=== PATIENT | female | born 1960 | race Two or more races ===

== ENCOUNTER 2016-12-28 05:33 | Emergency (ER) | payer SELFPAY ==
[~2016-12-28] VITALS: Ht 167.6 cm; Wt 81.6 kg
[2016-12-28] MEDS ORDERED: SODIUM CHLORIDE 0.9% 1,000 ML IV ONE (06:56)
[2016-12-28] MEDS ORDERED: DIPHENOXYLATE W/ATROPINE 2.5 MG TAB PO ONE (07:00)
[2016-12-28 09:38] LABS: Basophils # (auto) 0.1 uL; Basophils % (auto) 0.8 % (0.0-2.0); Eosinophils # (auto) 0.1 uL; Eosinophils % (auto) 0.7 % (0.0-7.0); Hematocrit 40.5 % (36.0-46.0); Hemoglobin 13.7 g/dL (12.2-16.2); Lymphocytes # (auto) 2.4 uL; Mean Corpuscular Hemoglobin 28.5 pg (28.0-32.0); Mean Corpuscular Hgb Conc. 33.9 g/dL (32.0-36.0); Mean Corpuscular Volume 84.2 fL (80.0-100.0); Mean Platelet Volume 8.3 fL (6.9-10.8); Monocytes # (auto) 0.4 uL; Neutrophils # (auto) 10.3 uL; Neutrophils % (auto) 77.5 % (37.0-80.0); Nucleated Red Blood Cells % 0.1 %; Platelet Count (auto) 260 10^3/uL (140-450); Red Cell Distribution Width 12.9 % (11.8-14.3); White Blood Cell 13.3 10^3/uL (4.4-10.8)
[2016-12-28] MEDS ORDERED: HYDROcodone-ACET 10/325MG TAB PO ONE (10:00)
[2016-12-28 10:02] LABS: Albumin 3.7 g/dL (3.4-5.0); Alkaline Phosphatase 177 U/L (45-117); Anion Gap 8 (5-15); Aspartate Aminotransferase 31 U/L (15-37); BUN/Creatinine Ratio 23.9; Bilirubin, Total 0.3 mg/dL (0.2-1.0); Blood Urea Nitrogen 11 mg/dL (7-18); Carbon Dioxide 22 mmol/L (21-32); Chloride 109 mmol/L (98-107); GFR African American 181 mL/min; GFR Non-African American 150 mL/min; Glucose 138 mg/dL (74-106); Potassium 4.2 mmol/L (3.5-5.1); Sodium 139 mmol/L (136-145); Total Protein 7.8 g/dL (6.4-8.2)
[2016-12-28 10:07] VITALS: BP 125/85
== END 2016-12-28 11:22 | disposition home or self-care (01) ==
LOC: EDBD 05:33 → ER 05:42
DX: N39.0 Urinary tract infection, site not specified (principal); R19.7 Diarrhea, unspecified; I10 Essential (primary) hypertension; L93.0 Discoid lupus erythematosus
CPT/HCPCS: 36415; 74176; 80053; 81002; 84484; 85025; 96360; 99285; J7030

== ENCOUNTER 2017-01-26 14:07 | Emergency (ER) | payer SELFPAY ==
[~2017-01-26] VITALS: Ht 157.5 cm; Wt 74.8 kg
[2017-01-26 16:26] LABS: Hemoglobin 14.8 g/dL (12.2-16.2)
[2017-01-26 16:37] LABS: Hematocrit 44.1 % (36.0-46.0); Mean Corpuscular Hemoglobin 28.7 pg (28.0-32.0); Mean Corpuscular Hgb Conc. 33.5 g/dL (32.0-36.0); Mean Corpuscular Volume 85.7 fL (80.0-100.0); Mean Platelet Volume 8.7 fL (6.9-10.8); Platelet Count (auto) 249 10^3/uL (140-450); Red Cell Distribution Width 13.5 % (11.8-14.3); White Blood Cell 10.6 10^3/uL (4.4-10.8)
[2017-01-26 16:44] LABS: Metamyelocytes % 0; Myelocytes % 0; Promyelocytes % 0; Reactive Lymphocytes 0
[2017-01-26 17:04] LABS: Albumin 4.1 g/dL (3.4-5.0); Alkaline Phosphatase 137 U/L (45-117); Anion Gap 12 (5-15); Aspartate Aminotransferase 34 U/L (15-37); Bilirubin, Total 0.5 mg/dL (0.2-1.0); Blood Urea Nitrogen 12 mg/dL (7-18); Calcium 9.2 mg/dL (8.5-10.1); Carbon Dioxide 24 mmol/L (21-32); Chloride 102 mmol/L (98-107); GFR African American 133 mL/min; GFR Non-African American 110 mL/min; Glucose 182 mg/dL (74-106); Magnesium 2.2 mg/dL (1.6-2.6); Sodium 138 mmol/L (136-145); Total Protein 8.2 g/dL (6.4-8.2)
[2017-01-26 17:34] VITALS: BP 128/71
[2017-01-26 20:18] LABS: Anisocytosis Moderate; Platelet Estimate Adequate
== END 2017-01-27 00:09 | disposition left against medical advice (07) ==
LOC: ER 14:17
DX: R79.9 Abnormal finding of blood chemistry, unspecified (principal); Z53.21 Procedure and treatment not carried out due to patient leaving prior to being seen by health care provider
CPT/HCPCS: 36415; 80053; 83735; 84484; 85007; 85027; 93005

== ENCOUNTER 2024-04-18 10:01 | Emergency (ER) | payer OTHER ==
[~2024-04-18] VITALS: Ht 157.5 cm; Wt 75.0 kg
[2024-04-18 10:30] VITALS: PULSE 77; RESP 16; O2SAT 96
[2024-04-18] MEDS: HYDROcodone-ACET 5/325MG TAB PO ONE (10:51)
--- NOTE | 2024-04-18 11:31 | ED.PDOC ---
Musculoskeletal HPI Comments 63y F who presents to the ED for chief complaint of fall injury. Per daughter, pt had mechanical fall and injury last night. Pt states she tripped and fell and hit the R side of her chest on her desk drawer. Pt states after fall, she started to have chest pain on the R side of her chest but denies any associated loss of consciousness or head injury. Pt states the pain went away but states the chest pain came back today AM and came to the ED for further evaluation. Pt int the ED, states she is having R sided chest pain and states the pain is worse when taking a deep breath. Pt otherwise denies any associated shortness of breath, diaphoresis, or any associated symptoms. Pt in the ED, has no noted lacerations or abrasions noted. Pt daughter states pt is prone to falls and had fall few months prior and came to the hospital and was dx with hip fracture. 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 Pt has noted stable vitals with noted exception of BP 148/69. Pt otherwise denies any other symptoms at this time. Chief Complaint: Fall Injury Time Seen by MD: 11:28 Reviewed Notes: Medications, Allergies Allergies: Coded Allergies: Codeine (Verified Allergy, Mild, bp drops, 04/18/24) Per patient Information Source: Patient, Relative Mode of Arrival: Wheelchair Brought in by: daughter Past Medical History PAST MEDICAL HISTORY: CVA, HTN Surgical History: Denies all surgeries COMMUNITY CENTER DIRECTOR History: Denies all COMMUNITY CENTER DIRECTOR Hx Family History Family History: Unknown Social History Smoker: Non-Smoker Alcohol: Denies ETOH Use Drugs: Denies Drug Use Lives In: Home Constitutional: denies: chills, diaphoresis, fatigue, fever, malaise, sweats, weakness, others EENTM: denies: blurred vision, double vision, ear bleeding, ear discharge, ear drainage, ear pain, ear ringing, eye pain, eye redness, hearing loss, mouth pain, mouth swelling, nasal discharge, nose bleeding, nose congestion, nose pain, photophobia, tearing, throat pain, throat swelling, voice changes, others Respiratory: denies: cough, hemoptysis, orthopnea, SOB at rest, shortness of breath, SOB with excertion, stridor, wheezing, others Cardiovascular: reports: chest pain; denies: dizzy spells, diaphoresis, Dyspnea on exertion, edema, irregular heart beat, left arm pain, lightheadedness, palpitations, PND, syncope, others Gastrointestinal: denies: abdomen distended, abdominal pain, blood streaked bowels, constipated, diarrhea, dysphagia, difficulty swallowing, hematemesis, melena, nausea, poor appetite, poor fluid intake, rectal bleeding, rectal pain, vomiting, others Genitourinary: denies: abnormal vagina bleeding, burning, dyspareunia, dysuria, flank pain, frequency, hematuria, incontinence, pain, , vagina discharge, urgency, others Neurological: denies: dizziness, fainting, headache, left sided numbness, left sided weakness, numbness, paresthesia, pre-existing deficit, right sided numbness, right sided weakness, seizure, speech problems, tingling, tremors, weakness, others Musculoskeletal: denies: back pain, gout, joint pain, joint swelling, muscle pain, muscle stiffness, neck pain, others Integumetry: denies: bruises, change in color, change in hair/nails, dryness, laceration, lesions, lumps, rash, wounds, others Allergic/Immunocompromised: denies: Difficulty Healing, Frequent Infections, Hives, Itching, others Hematologic/Lymphatic: denies: anemia, blood clots, easy bleeding, easy bruising, swollen glands, others Endocrine: denies: excessive hunger, excessive sweating, excessive thirst, excessive urination, flushing, intolerance to cold, intolerance to heat, unexplained weight gain, unexplained weight loss, others Psychiatric: denies: anxiety, bipolar disorder, depression, hopeless, panic disorder, schizophrenia, sleepless, suicidal, others All Other Systems: Reviewed and Negative Physical Exam General Appearance: No Apparent Distress HEENT: PERRL/EOMI Neck: Full Range of Motion, Normal Inspection Respiratory: Lungs Clear, No Accessory Muscle Use, No Respiratory Distress, Normal Breath Sounds, Other (Right mid anterior, lateral and posterior chest wall tenderness to palpation. No bruising or crepitus.) Cardiovascular: No Edema, No JVD, Regular Rate/Rhythm Breast Exam: Deferred Gastrointestinal: Non Tender, Soft Genitalia: Deferred Pelvic: Deferred Rectal: Deferred Extremities: Normal inspection, Normal range of motion, Non-tender, No pedal edema Neurologic: Alert (Oriented x4), Normal Affect, Normal Mood, Other (Chronic right upper and lower extremity weakness. No change per patient.) Cerebellar Function: NOT DONE Reflexes: NOT DONE Skin: Dry, Normal Color, Warm Lymphatic: NOT DONE Was a procedure done? Was a procedure done?: No Differential Diagnosis EXT Differential Diagnosis: Fracture, Contusion Other Differential Diagnosis rib fracture, hemothorax, pulmonary contusion, chest wall contusion, among others X-Ray, Labs, Meds, VS Vital Signs Date Time Temp Pulse Resp B/P (MAP) Pulse Ox O2 Delivery O2 Flow Rate FiO2 04/18/24 10:30 77 16 96 Room Air* 0 21 04/18/24 10:29 97.4 77 16 137/65 (89) 96 97.4 04/18/24 10:11 97.3 79 18 148/69 (95) 96 Lab Test 04/18/24 12:36 04/18/24 11:14 04/18/24 10:27 Range/Units Urine Color Pending Urine Clarity Pending Urine pH Pending Urine Specific [place] Pending Urine Protein Pending Urine Ketones Pending Urine Blood Pending Urine Nitrite Pending Urine Bilirubin Pending Urine Urobilinogen Pending Urine Leukocyte Esterase Pending Urine RBC Pending Urine Microscopic WBC Pending Urine Squamous Epithelial Cells Pending Urine Bacteria Pending Urine Glucose Pending White Blood Count 10.5 4.4-10.8 10^3/uL Red Blood Count 5.82 H 4.0-5.20 10^6/uL Hemoglobin 15.9 12.2-16.2 g/dL Hematocrit 46.6 H 36.0-46.0 % Mean Corpuscular Volume 80.1 80.0-100.0 fL Mean Corpuscular Hemoglobin 27.3 L 28.0-32.0 pg Mean Corpuscular Hemoglobin Concent 34.1 32.0-36.0 g/dL Red Cell Distribution Width 15.8 H 11.8-14.3 % Platelet Count 310 140-450 10^3/uL Mean Platelet Volume 8.5 6.9-10.8 fL Neutrophils (%) (Auto) 65.2 37.0-80.0 % Lymphocytes (%) (Auto) 26.6 10.0-50.0 % Monocytes (%) (Auto) 4.6 0.0-12.0 % Eosinophils (%) (Auto) 2.4 0.0-7.0 % Basophils (%) (Auto) 1.2 0.0-2.0 % Neutrophils # (Auto) 6.8 1.6-8.6 10 ^3/uL Lymphocytes # (Auto) 2.8 0.4-5.4 10 ^3/uL Monocytes # (Auto) 0.5 0-1.3 10 ^3/uL Eosinophils # (Auto) 0.2 0-0.8 10 ^3/uL Basophils # (Auto) 0.1 0-0.2 10 ^3/uL Nucleated Red Blood Cells 0.0 % Sodium Level 143 136-145 mmol/L Potassium Level 3.7 3.5-5.1 mmol/L Chloride Level 108 H 98-107 mmol/L Carbon Dioxide Level 25 20-31 mmol/L Anion Gap 10 5-15 Blood Urea Nitrogen 12 9-23 mg/dL Creatinine 0.65 0.550-1.02 mg/dL Glomerular Filtration Rate Calc 99 >90 mL/min BUN/Creatinine Ratio 18.5 10.0-20.0 Serum Glucose 134 H 74-106 mg/dL Calcium Level 10.2 8.7-10.4 mg/dL Troponin I High Sensitivity 3 L </=34 ng/L B-Type Natriuretic Peptide 67.73 0-100 pg/mL POC Glucose 116 H 70-106 mg/dl [place] [id number] Ph: [phone] DIAGNOSTIC IMAGING Diagnostic Imaging Report : [id number] Signed PATIENT: ELLEN DIAZACCT: [id number] UNIT: [id number] : 1960 LOC: ER ROOM / BED: / AGE / SEX: 63 / F ADM STATUS: REG ER SERVICE [id number] ORDERING PHYSICIAN: DENISE HANNA MD PROCEDURE(s): RRIBS - R RIB XRAY REASON: R chest wall pain sp fall ORDER NUMBER(s): [id number], ACCESSION NUMBER(s): [id number] EXAM: XR Right Ribs and AP Chest, 3 or More Views CLINICAL INDICATION: R chest wall pain sp fall TECHNIQUE: Frontal and oblique views of the right ribs and frontal view of the chest. COMPARISON: None FINDINGS: LUNGS AND PLEURAL SPACES: Unremarkable. No consolidation. No pneumothorax. HEART: Unremarkable. No cardiomegaly. MEDIASTINUM: Unremarkable. Normal mediastinal contour. BONES/JOINTS: Unremarkable. No displaced rib fractures. OTHER FINDINGS: . IMPRESSION: No displaced rib fractures. ATED BY: JAMES LORA MD DICTATED DATE/TIME: 04/18/24 113 SIGNED BY: JAMES LORA MD SIGNED DATE/TIME: 04/18/24 113 CC: X-Ray, Labs, Meds, VS Comment 63-year-old female with a history of CVA and hypertension brought in by daughter for evaluation of right-sided chest wall pain status post fall. Vitals remarkable for BP 148/69 Exam remarkable for right-sided chest wall tenderness to palpation. No bruising or crepitus Rhythm strip independently interpreted by me: Sinus rhythm, rate 79, no ectopy. Right rib series no displaced rib fracture CBC, metabolic panel, BNP, troponin and UA unremarkable for any abnormality of acute significance Patient treated with the following in the ED: Time of 1ST Reevaluation: 12:00 Reevaluation 1ST: Unchanged Time of 2ND Reevaluation: 13:14 Patient Education/Counseling: Diagnosis, Treatment Family Education/Counseling: Diagnosis, Treatment Additional Information -Reviewed patient's previous visit(s): - The following tests were ordered, and results were reviewed by me: trop x 2, cbc, bnp, ua, bmp, ekg x1, r rib x-ray, - Additional information was gathered from interviewing the following independent Historian:pt and pt daugther - I reviewed and agreed with the following test results read by other provider: radiologist - I discussed treatments and results with medical personnel and: patient and pt daughter Comprehensive systems review obtained and negative except for what is stated in the HPI. Departure 1 Departure Time of Disposition: 13:14 Impression: Primary Impression: Chest wall contusion Qualified Codes: S20.211A - Contusion of right front wall of thorax, initial encounter Disposition: HOME / SELF CARE / HOMELESS Condition: Stable Additional Instructions: Blood tests were unremarkable. Your x-rays did not show any broken bones. Your chest pain is likely due to a bruise on your chest wall. This is treated with pain medications. I have prescribed pain medications for you to take at home. Follow-up with your primary doctor in 1-2 days. e-Prescriptions Tramadol Hcl (Tramadol Hcl) 50 Mg Tab 50 MG PO Q6HP PRN, #20 TAB prn breakthrough pain Prov: DENISE HANNA MD 04/18/24 Ibuprofen Micronized (Ibuprofen) 800 Mg Tab 800 MG PO Q8HP PRN, #30 TAB prn pain, take with food Prov: DENISE HANNA MD 04/18/24 Discharged With: Relative Critical Care Note Critical Care Time?: No Stability Stability form required: No Heart Score Heart Score: Heart Score Response (Comments) Value History N/A 0 EKG N/A 0 Age N/A 0 Risk Factors N/A 0 Troponin N/A 0 Total 0 I personally scribed for DENISE HANNA MD ([email or web address]) on 04/18/24 at 1 1:31. Electronically submitted by Humberto Amaya ([email or web address]). I personally scribed for DENISE HANNA MD ([email or web address]) on 04/18/24 at 11:50. Electronically submitted by Humberto Amaya ([email or web address]). DENISE HANNA MD Apr 18, 2024 11:31
--- NOTE | 2024-04-18 11:34 | DVH ---
EXAM: XR Right Ribs and AP Chest, 3 or More Views CLINICAL INDICATION: R chest wall pain sp fall TECHNIQUE: Frontal and oblique views of the right ribs and frontal view of the chest. COMPARISON: None FINDINGS: LUNGS AND PLEURAL SPACES: Unremarkable. No consolidation. No pneumothorax. HEART: Unremarkable. No cardiomegaly. MEDIASTINUM: Unremarkable. Normal mediastinal contour. BONES/JOINTS: Unremarkable. No displaced rib fractures. OTHER FINDINGS: . IMPRESSION: No displaced rib fractures.
[2024-04-18 11:35] LABS: Basophils # (auto) 0.1 10 ^3/uL (0-0.2); Basophils % (auto) 1.2 % (0.0-2.0); Eosinophils # (auto) 0.2 10 ^3/uL (0-0.8); Eosinophils % (auto) 2.4 % (0.0-7.0); Hematocrit 46.6 % (36.0-46.0); Hemoglobin 15.9 g/dL (12.2-16.2); Lymphocytes # (auto) 2.8 10 ^3/uL (0.4-5.4); Lymphocytes % (auto) 26.6 % (10.0-50.0); Mean Corpuscular Hemoglobin 27.3 pg (28.0-32.0); Mean Corpuscular Hgb Conc. 34.1 g/dL (32.0-36.0); Mean Corpuscular Volume 80.1 fL (80.0-100.0); Monocytes # (auto) 0.5 10 ^3/uL (0-1.3); Monocytes % (auto) 4.6 % (0.0-12.0); Neutrophils # (auto) 6.8 10 ^3/uL (1.6-8.6); Neutrophils % (auto) 65.2 % (37.0-80.0); Platelet Count (auto) 310 10^3/uL (140-450); Red Blood Cells 5.82 10^6/uL (4.0-5.20); Red Cell Distribution Width 15.8 % (11.8-14.3); White Blood Cell 10.5 10^3/uL (4.4-10.8)
[2024-04-18 11:38] LABS: Potassium 3.7 mmol/L (3.5-5.1); Sodium 143 mmol/L (136-145)
[2024-04-18 11:39] LABS: Anion Gap 10 (5-15); Calcium 10.2 mg/dL (8.7-10.4); Carbon Dioxide 25 mmol/L (20-31)
[2024-04-18 11:43] LABS: Chloride 108 mmol/L (98-107)
[2024-04-18 11:44] LABS: BUN/Creatinine Ratio 18.5 (10.0-20.0); Blood Urea Nitrogen 12 mg/dL (9-23)
[2024-04-18 11:46] LABS: Glucose 134 mg/dL (74-106)
[2024-04-18 12:56] LABS: Urine Bacteria FEW /hpf (None Seen); Urine Blood Negative /uL (Negative); Urine Clarity Clear (Clear); Urine Color Light-Yellow (Yellow); Urine Protein, UAD 1+ (Negative); Urine Specific Gravity 1.011 (1.001-1.035); Urine Squamous Epithelial Cell FEW /hpf (<5); Urine Urobilinogen Normal (Negative); Urine WBC 3 /HPF (0-5)
[2024-04-18] MEDS: ONDANSETRON ODT 4 MG TAB PO ONE (13:15)
[2024-04-18] MEDS ORDERED: IBUP-1455 PO (13:19)
[2024-04-18] MEDS ORDERED: TRAM50TA2 PO (13:19)
[2024-04-18] MEDS ORDERED: MORPHINE SULFATE 4 MG/ML SYR/VIAL IM ONE (13:50)
[2024-04-18 14:18] VITALS: BP 126/65; PULSE 80; RESP 17; TEMP 97.6; O2SAT 96
== END 2024-04-18 14:23 | disposition home or self-care (01) ==
LOC: ER 10:01
DX: S20.211A Contusion of right front wall of thorax, initial encounter (principal); I10 Essential (primary) hypertension; Z86.73 Personal history of transient ischemic attack (TIA), and cerebral infarction without residual deficits; Z88.5 Allergy status to narcotic agent; Z79.899 Other long term (current) drug therapy; W01.0XXA Fall on same level from slipping, tripping and stumbling without subsequent striking against object, initial encounter; Y93.89 Activity, other specified; Y92.89 Other specified places as the place of occurrence of the external cause; Y99.8 Other external cause status
CPT/HCPCS: 36415; 71101; 80048; 81001; 82947; 82962; 83880; 84484; 85025; Q0162

== ENCOUNTER 2024-07-22 18:38 | Inpatient (IN) | payer OTHER ==
[~2024-07-22] VITALS: Ht 160 cm; Wt 79.6 kg
[~2024-07-22 18:38] MED LIST: IBUP-1455 PO; TRAM50TA2 PO
[2024-07-22 19:37] LABS: Basophils # (auto) 0.1 10 ^3/uL (0-0.2); Basophils % (auto) 0.8 % (0.0-2.0); Eosinophils # (auto) 0.2 10 ^3/uL (0-0.8); Eosinophils % (auto) 1.8 % (0.0-7.0); Hematocrit 44.1 % (36.0-46.0); Hemoglobin 14.8 g/dL (12.2-16.2); Lymphocytes # (auto) 3.3 10 ^3/uL (0.4-5.4); Lymphocytes % (auto) 31.7 % (10.0-50.0); Mean Corpuscular Hemoglobin 27.6 pg (28.0-32.0); Mean Corpuscular Hgb Conc. 33.6 g/dL (32.0-36.0); Mean Corpuscular Volume 82.1 fL (80.0-100.0); Monocytes # (auto) 0.6 10 ^3/uL (0-1.3); Monocytes % (auto) 5.6 % (0.0-12.0); Neutrophils # (auto) 6.2 10 ^3/uL (1.6-8.6); Neutrophils % (auto) 60.1 % (37.0-80.0); Nucleated Red Blood Cells % 0.2 %; Platelet Count (auto) 297 10^3/uL (140-450); Red Blood Cells 5.37 10^6/uL (4.0-5.20); Red Cell Distribution Width 14.5 % (11.8-14.3); White Blood Cell 10.3 10^3/uL (4.4-10.8)
--- NOTE | 2024-07-22 19:39 | DVH ---
CHEST RADIOGRAPH Indication: gen weak Technique: Single frontal view of the chest was obtained Comparison: None FINDINGS: Lines and Tubes: None Lungs: Minimal right lower lung zone opacity. Elevated right hemidiaphragm. Pleura: No effusion. No pneumothorax. Cardiomediastinal contours: Unremarkable Bones: No acute osseous abnormality. IMPRESSION: Mild elevation of the right hemidiaphragm with right lower lung zone atelectasis/early pneumonia.
[2024-07-22 19:55] LABS: Alanine Aminotransferase 24 U/L (7-40); Anion Gap 11 (5-15); Aspartate Aminotransferase 24 U/L (13-40); BUN/Creatinine Ratio 13.8 (10.0-20.0); Carbon Dioxide 27 mmol/L (20-31); Chloride 103 mmol/L (98-107); Potassium 3.6 mmol/L (3.5-5.1); Sodium 141 mmol/L (136-145); Total Protein 7.8 g/dL (5.7-8.2)
[2024-07-22 19:56] LABS: Bilirubin, Total 0.4 mg/dL (0.2-1.0)
[2024-07-22 19:57] LABS: Albumin 4.9 g/dL (3.2-4.8); Alkaline Phosphatase 163 U/L (46-116); Blood Urea Nitrogen 9 mg/dL (9-23); Calcium 10.8 mg/dL (8.7-10.4); Glucose 248 mg/dL (74-106)
[2024-07-22] MEDS: hydrALAZINE HCL 20 MG/ML VL IV ONE (19:59)
--- NOTE | 2024-07-22 20:02 | DVH ---
CLINICAL HISTORY: gen weak TECHNIQUE: Helical imaging carried out from skull base to vertex without intravenous contrast. This e xam was performed according to our departmental dose optimization program. Up-to-date CT equipment an d radiation dose reduction techniques are utilized as appropriate. CTDIVol: 51.74 mGy DLP: 933.06 mGy-cm WID: COMPARISON: None FINDINGS: Mild generalized cerebral volume loss with concordant prominence of the subarachnoid spaces and ventr icles. Mild patchy low attenuation in the cerebral white matter consistent with nonspecific white mat ter disease. Small chronic infarct in the left gramajo radiata and left basal ganglia. There is a smal l chronic infarct in the left thalamus. There is no midline shift or mass effect. The stone white matter interfaces are maintained. The basal cisterns are patent. There is no evidence of acute intracranial hemorrhage or extra-axial fluid michelle ection. The mastoid air cells and visualized paranasal sinuses are well-aerated aside from aerated se cretions in the left sphenoid sinus. Partially imaged periapical lucencies in some of the visualized maxillary teeth. IMPRESSION: 1. No acute intracranial abnormality. 2. Mild cerebral volume loss and mild chronic microvascular ischemic change. 3. Small chronic infarct in the left gramajo radiata and left basal ganglia. 4. Small chronic infarct in the left thalamus. 5. Periapical lucencies in some of the visualized maxillary teeth.
--- NOTE | 2024-07-22 22:56 | ED.PDOC ---
History of Present Illness HPI Comments 63-year-old female brought in by daughter. Daughter states patient has been having generalized weakness for the last three days. Mild cough. Patient does have a history of prior stroke three years ago with right-sided deficits. Patient states she feels very tired very fatigued. Has a hard time walking due to her fatigue. No fever at home. Nothing makes it better, nothing makes it worse. Chief Complaint: General Weakness Time Seen by MD: 18:43 Reviewed Notes: Nurses Notes Allergies: Coded Allergies: Codeine (Verified Allergy, Mild, bp drops, 04/18/24) Per patient Home Meds Active Scripts Tramadol Hcl (Tramadol Hcl) 50 Mg Tab, 50 MG PO Q6HP PRN, #20 TAB prn breakthrough pain Prov:DENISE HANNA MD 04/18/24 Ibuprofen Micronized (Ibuprofen) 800 Mg Tab, 800 MG PO Q8HP PRN, #30 TAB prn pain, take with food Prov:DENISE HANNA MD 04/18/24 Information Source: Patient Mode of Arrival: Wheelchair Past Medical History PAST MEDICAL HISTORY: CVA, HTN Surgical History: Denies all surgeries REVENUE INSPECTOR History: Denies all REVENUE INSPECTOR Hx Family History Family History: Unknown Social History Smoker: Non-Smoker Alcohol: Denies ETOH Use Drugs: Denies Drug Use Lives In: Home Constitutional: reports: fatigue, weakness; denies: chills, diaphoresis, fever, malaise, sweats, others EENTM: denies: blurred vision, double vision, ear bleeding, ear discharge, ear drainage, ear pain, ear ringing, eye pain, eye redness, hearing loss, mouth pain, mouth swelling, nasal discharge, nose bleeding, nose congestion, nose pain, photophobia, tearing, throat pain, throat swelling, voice changes, others Respiratory: reports: cough; denies: hemoptysis, orthopnea, SOB at rest, shortness of breath, SOB with excertion, stridor, wheezing, others Cardiovascular: denies: chest pain, dizzy spells, diaphoresis, Dyspnea on exertion, edema, irregular heart beat, left arm pain, lightheadedness, palpitations, PND, syncope, others Gastrointestinal: denies: abdomen distended, abdominal pain, blood streaked bowels, constipated, diarrhea, dysphagia, difficulty swallowing, hematemesis, melena, nausea, poor appetite, poor fluid intake, rectal bleeding, rectal pain, vomiting, others Genitourinary: denies: abnormal vagina bleeding, burning, dyspareunia, dysuria, flank pain, frequency, hematuria, incontinence, pain, , vagina discharge, urgency, others Neurological: denies: dizziness, fainting, headache, left sided numbness, left sided weakness, numbness, paresthesia, pre-existing deficit, right sided numbness, right sided weakness, seizure, speech problems, tingling, tremors, weakness, others Musculoskeletal: denies: back pain, gout, joint pain, joint swelling, muscle pain, muscle stiffness, neck pain, others Integumetry: denies: bruises, change in color, change in hair/nails, dryness, laceration, lesions, lumps, rash, wounds, others Physical Exam General Appearance: Mild Distress, No Apparent Distress HEENT: Normal ENT Inspection, Pharynx Normal, TMs Normal Neck: Full Range of Motion, Non-Tender, Normal, Normal Inspection Respiratory: Chest Non-Tender, Lungs Clear, No Accessory Muscle Use, No Respiratory Distress, Normal Breath Sounds Cardiovascular: No Edema, No JVD, No Murmur, No Gallop, Normal Peripheral Pulses, Regular Rate/Rhythm Breast Exam: Deferred Gastrointestinal: No Organomegaly, Non Tender, No Pulsatile Mass, Normal Bowel Sounds, Soft Genitalia: Deferred Pelvic: Deferred Rectal: Deferred Extremities: No calf tenderness, Normal capillary refill, Non-tender, No pedal edema Musculoskeletal : Apperance: Normal Neurologic: Alert, No Motor Deficits, Normal Affect, Normal Mood Cerebellar Function: Normal Reflexes: Normal Skin: Dry, Normal Color, Warm Lymphatic: No Adenopathy Was a procedure done? Was a procedure done?: No Differential Dx Considerations may include: pneumonia, CVA, TIA, sepsis X-Ray, Labs, Meds, VS Vital Signs Date Time Temp Pulse Resp B/P (MAP) Pulse Ox O2 Delivery O2 Flow Rate FiO2 07/22/24 19:59 201/135 07/22/24 19:25 73 24 178/70 (106) 92 07/22/24 19:00 74 07/22/24 18:50 98.4 72 18 211/91 (131) 95 98.4 Lab Test 07/22/24 19:23 Range/Units White Blood Count 10.3 4.4-10.8 10^3/uL Red Blood Count 5.37 H 4.0-5.20 10^6/uL Hemoglobin 14.8 12.2-16.2 g/dL Hematocrit 44.1 36.0-46.0 % Mean Corpuscular Volume 82.1 80.0-100.0 fL Mean Corpuscular Hemoglobin 27.6 L 28.0-32.0 pg Mean Corpuscular Hemoglobin Concent 33.6 32.0-36.0 g/dL Red Cell Distribution Width 14.5 H 11.8-14.3 % Platelet Count 297 140-450 10^3/uL Mean Platelet Volume 8.4 6.9-10.8 fL Neutrophils (%) (Auto) 60.1 37.0-80.0 % Lymphocytes (%) (Auto) 31.7 10.0-50.0 % Monocytes (%) (Auto) 5.6 0.0-12.0 % Eosinophils (%) (Auto) 1.8 0.0-7.0 % Basophils (%) (Auto) 0.8 0.0-2.0 % Neutrophils # (Auto) 6.2 1.6-8.6 10 ^3/uL Lymphocytes # (Auto) 3.3 0.4-5.4 10 ^3/uL Monocytes # (Auto) 0.6 0-1.3 10 ^3/uL Eosinophils # (Auto) 0.2 0-0.8 10 ^3/uL Basophils # (Auto) 0.1 0-0.2 10 ^3/uL Nucleated Red Blood Cells 0.2 % Sodium Level 141 136-145 mmol/L Potassium Level 3.6 3.5-5.1 mmol/L Chloride Level 103 98-107 mmol/L Carbon Dioxide Level 27 20-31 mmol/L Anion Gap 11 5-15 Blood Urea Nitrogen 9 9-23 mg/dL Creatinine 0.65 0.550-1.02 mg/dL Glomerular Filtration Rate Calc 99 >90 mL/min BUN/Creatinine Ratio 13.8 10.0-20.0 Serum Glucose 248 H 74-106 mg/dL Calcium Level 10.8 H 8.7-10.4 mg/dL Total Bilirubin 0.4 0.2-1.0 mg/dL Aspartate Amino Transferase (AST) 24 13-40 U/L Alanine Aminotransferase (ALT) 24 7-40 U/L Alkaline Phosphatase 163 H 46-116 U/L Total Protein 7.8 5.7-8.2 g/dL Albumin 4.9 H 3.2-4.8 g/dL Current Medications Medications (Trade) Dose Ordered Sig/Sadia Route Start Time Stop Time Status Last Admin Hydralazine HCl (Apresoline Injection) 10 mg ONCE ONCE IV 07/22/24 19:15 07/22/24 19:16 DC 07/22/24 19:59 X-Ray, Labs, Meds, VS Comment He will be admitted for hypertensive urgency controlled with hydralazine Patient also has possible pneumonia Patient be started on Rocephin 1 g Patient is hemodynamically stable CT scan was negative for any acute cranial abnormalities Time of 1ST Reevaluation: 22:56 Reevaluation 1ST: Unchanged Patient Education/Counseling: Diagnosis, Treatment Family Education/Counseling: Diagnosis, Treatment Departure 1 Departure Time of Disposition: 22:51 Impression: Primary Impression: Pneumonia Qualified Codes: J18.9 - Pneumonia, unspecified organism Additional Impression: Hypertensive urgency Disposition: 09 ADMITTED INPATIENT Condition: Stable Critical Care Note Critical Care Time?: No Stability Stability form required: No Heart Score Heart Score: Heart Score Response (Comments) Value History N/A 0 EKG N/A 0 Age N/A 0 Risk Factors N/A 0 Troponin N/A 0 Total 0 VASILIY MERRITT Jul 22, 2024 22:56
[2024-07-22] MEDS: cefTRIAXone 1GM/50ML D5W 50 ML IV ONE (23:17)
[2024-07-22 23:22] VITALS: RESP 20; O2SAT 96
[2024-07-22] MEDS ORDERED: hydrALAZINE HCL 20 MG/ML VL IV PRN (23:30)
[2024-07-22] MEDS ORDERED: DEXTROSE (50%) 50ML SYRG IV PRN (23:30)
[2024-07-22] MEDS ORDERED: ALBUTEROL SULF 2.5 MG/0.5ML(0.5%) NEB SOLN NEB PRN (23:30)
[2024-07-23] VITALS (13 sets, daily range): BP systolic 114–152; BP diastolic 51–79; PULSE 63–75; RESP 12–18; TEMP 97.7–98.5; O2SAT 91–100
--- NOTE | 2024-07-23 00:03 | DVHHP2 ---
History of Present Illness Reason for Visit: Headache History of Present Illness 63-year-old female presents for evaluation of generalized weakness in the headache. She states developing these symptoms three days ago. She does have a history of CVA with right-sided deficits. She reports having a mild productive cough with white phlegm and intermittent chills. On arrival to the emergency department patient's blood pressure was noted to be greater than 200. Denies blurred vision. No chest pain. No other acute complaints reported. Past Medical History Diabetes mellitus, hypertension, CVA Past Surgical History Denies Family History Noncontributory Smoke: No ALCOHOL: none Drugs: None Lives: with Family Review of Systems Review of Systems Review of systems are currently negative otherwise addressed in HPI. Allergies: Coded Allergies: Codeine (Verified Allergy, Mild, bp drops, 04/18/24) Per patient Medications Current Medications Medications Dose Ordered Sig/Sadia Route Start Time Stop Time Status Last Admin Dose Admin Atenolol 25 mg DAILY PO 07/23/24 10:00 Aspirin 81 mg DAILY PO 07/23/24 10:00 Hydrochlorothiazide 25 mg DAILY PO 07/23/24 10:00 Atorvastatin Calcium 80 mg HS PO 07/23/24 22:00 Gabapentin 800 mg BID PO 07/23/24 10:00 Duloxetine HCl 60 mg DAILY PO 07/23/24 10:00 Hydralazine HCl 10 mg Q6HP PRN IV 07/22/24 23:30 UNV Albuterol 2.5 mg Q6HPRN PRN NEB 07/22/24 23:30 UNV Azithromycin 250 ml @ 125 mls/hr DAILY@2100 IV 07/23/24 21:00 UNV Diagnostic Test (Pha) 1 strip ACHS 07/23/24 07:00 UNV Insulin Human Regular ACHS SC 07/23/24 07:00 UNV Dextrose 50 ml UD PRN IV 07/22/24 23:30 UNV Ondansetron HCl 4 mg Q4HP PRN IV 07/22/24 23:30 UNV Enoxaparin Sodium 40 mg DAILY SC 07/23/24 10:00 UNV Acetaminophen 650 mg Q6HP PRN PO 07/22/24 23:30 UNV Exam Vital Signs Vital Signs Date Time Temp Pulse Resp B/P (MAP) Pulse Ox O2 Delivery O2 Flow Rate FiO2 07/22/24 23:37 79 15 120/61 (80) 95 07/22/24 23:22 Room Air* 0 21 21 07/22/24 21:30 98.1 98.1 Exam Gen: 63-year-old female in mild distress. Skin: Warm, dry, normal color and texture, no rash. HEENT: Normocephalic atraumatic, mucous membranes moist and pink. Neck: Cervical and supraclavicular nodes normal without enlargement, trachea is midline, thyroid gland is normal without masses. Pulmonary: Clear to auscultation and percussion bilaterally. Cardiac: Regular rate and rhythm. No murmur Abdomen: Soft, nontender, nondistended, bowel sounds present all 4 quadrants, no guarding, no rigidity, no organomegaly. Extremities: No cyanosis, clubbing, no edema Neuro: Right-sided deficits from previous CVA Labs/Xrays ORDERING PHYSICIAN: VASILIY MERRITTP PROCEDURE(s): CXRP - CHEST PORTABLE REASON: Futurederm ORDER NUMBER(s): [id number], ACCESSION NUMBER(s): [id number] CHEST RADIOGRAPH Indication: gen weak Technique: Single frontal view of the chest was obtained Comparison: None FINDINGS: Lines and Tubes: None Lungs: Minimal right lower lung zone opacity. Elevated right hemidiaphragm. Pleura: No effusion. No pneumothorax. Cardiomediastinal contours: Unremarkable Bones: No acute osseous abnormality. IMPRESSION: Mild elevation of the right hemidiaphragm with right lower lung zone atelectasis/early pneumonia. RING PHYSICIAN: VASILIY MERRITT WASTEWATER SUPERVISOR PROCEDURE(s): HWOCT - HEAD WITHOUT CONTRAST REASON: Futurederm ORDER NUMBER(s): [id number], ACCESSION NUMBER(s): [id number] CLINICAL HISTORY: weak TECHNIQUE: Helical imaging carried out from skull base to vertex without intravenous contrast. This exam was performed according to our departmental dose optimization program. Up-to-date CT equipment and radiation dose reduction patricio hniques are utilized as appropriate. CTDIVol: 51.74 mGy DLP: 933.06 mGy-cm WID: COMPARISON: None FINDINGS: Mild generalized cerebral volume loss with concordant prominence of the subarachnoid spaces and ventricles. Mild patchy low attenuation in the cerebral white matter consistent with nonspecific white matter disease. Small chronic infarct in the left gramajo radiata and left basal ganglia. There is a small chronic infarct in the left thalamus. There is no midline shift or mass effect. The stone white matter interfaces are maintained. The basal cisterns are patent. There is no evidence of acute intracranial hemorrhage or extra-axial fluid collection. The mastoid air cells and visualized paranasal sinuses are well-aerated aside from aerated secretions in the left sphenoid sinus. Partially imaged periapical lucencies in some of the visualized maxillary teeth. IMPRESSION: 1. No acute intracranial abnormality. 2. Mild cerebral volume loss and mild chronic microvascular ischemic change. 3. Small chronic infarct in the left gramajo radiata and left basal ganglia. 4. Small chronic infarct in the left thalamus. 5. Periapical lucencies in some of the visualized maxillary teeth. Labs Test 07/22/24 19:23 Range/Units White Blood Count 10.3 4.4-10.8 10^3/uL Red Blood Count 5.37 H 4.0-5.20 10^6/uL Hemoglobin 14.8 12.2-16.2 g/dL Hematocrit 44.1 36.0-46.0 % Mean Corpuscular Volume 82.1 80.0-100.0 fL Mean Corpuscular Hemoglobin 27.6 L 28.0-32.0 pg Mean Corpuscular Hemoglobin Concent 33.6 32.0-36.0 g/dL Red Cell Distribution Width 14.5 H 11.8-14.3 % Platelet Count 297 140-450 10^3/uL Mean Platelet Volume 8.4 6.9-10.8 fL Neutrophils (%) (Auto) 60.1 37.0-80.0 % Lymphocytes (%) (Auto) 31.7 10.0-50.0 % Monocytes (%) (Auto) 5.6 0.0-12.0 % Eosinophils (%) (Auto) 1.8 0.0-7.0 % Basophils (%) (Auto) 0.8 0.0-2.0 % Neutrophils # (Auto) 6.2 1.6-8.6 10 ^3/uL Lymphocytes # (Auto) 3.3 0.4-5.4 10 ^3/uL Monocytes # (Auto) 0.6 0-1.3 10 ^3/uL Eosinophils # (Auto) 0.2 0-0.8 10 ^3/uL Basophils # (Auto) 0.1 0-0.2 10 ^3/uL Nucleated Red Blood Cells 0.2 % Sodium Level 141 136-145 mmol/L Potassium Level 3.6 3.5-5.1 mmol/L Chloride Level 103 98-107 mmol/L Carbon Dioxide Level 27 20-31 mmol/L Anion Gap 11 5-15 Blood Urea Nitrogen 9 9-23 mg/dL Creatinine 0.65 0.550-1.02 mg/dL Glomerular Filtration Rate Calc 99 >90 mL/min BUN/Creatinine Ratio 13.8 10.0-20.0 Serum Glucose 248 H 74-106 mg/dL Calcium Level 10.8 H 8.7-10.4 mg/dL Total Bilirubin 0.4 0.2-1.0 mg/dL Aspartate Amino Transferase (AST) 24 13-40 U/L Alanine Aminotransferase (ALT) 24 7-40 U/L Alkaline Phosphatase 163 H 46-116 U/L Total Protein 7.8 5.7-8.2 g/dL Albumin 4.9 H 3.2-4.8 g/dL Assessment/Plan Assessment/Plan Assessment Hypertensive urgency Possible community-acquired pneumonia History of CVA with right-sided deficits Diabetes mellitus, uncontrolled Plan Admit the patient to [facility] to the hospitalist Echocardiogram pending Resume home medications As needed antihypertensives Resume home medications Continue treatment per orders Plan discussed with: Patient [facility] Procedure Category Date Status Time Atenolol Tablet PHA 07/23/24 In Process (Tenormin Tablet) 10:00 Aspirin Tablet PHA 07/23/24 In Process 10:00 Hydrochlorothiazide PHA 07/23/24 In Process Tablet (Hydrochlorot 10:00 Atorvastatin (Lipitor) PHA 07/23/24 In Process 22:00 Gabapentin Capsule PHA 07/23/24 In Process (Neurontin Capsule) 10:00 Duloxetine Hcl PHA 07/23/24 In Process Capsule (Cymbalta 10:00 Hydralazine Injection PHA 07/22/24 Logged (Apresoline Inject 23:30 Albuterol Medneb PHA 07/22/24 Logged (Ventolin Medneb) 23:30 * Edge Bander Operator CONS 07/22/24 Transmitted Consult Pt Request For Service PT 07/22/24 Logged 23:21 Azithromycin 500mg/ PHA 07/23/24 Logged 250ml (Zithromax 50 21:00 Azithromycin 500mg/ PHA 07/22/24 Logged 250ml (Zithromax 50 23:30 Glucose Blood PHA 07/23/24 Logged (Accu-Chek Comfort 07:00 Insulin R (Human) PHA 07/23/24 Logged (Insulin R) 07:00 Dextrose 50% Syringe PHA 07/22/24 Logged 23:30 Admit ADMIT 07/22/24 Transmitted 23:21 Ondansetron Hcl PHA 07/22/24 Logged (Zofran) 23:30 Enoxaparin Sodium PHA 07/23/24 Logged (Lovenox) 10:00 Cardiac DIET 07/23/24 Transmitted Diet-2gna,Lofat,Lochol Breakfast Echo 2d Mode Cardiac US 07/22/24 Logged DOP 23:21 Condition: Stable ANNA 07/22/24 In Process 23:21 Acetaminophen Tablet PHA 07/22/24 Logged (Tylenol Tablet) 23:30 Bedrest With Bathroom ANNA 07/22/24 In Process Privileg 23:21 Thyroid Stimulating LAB 07/22/24 In Process Hormone 23:48 Date of Service: Jul 22, 2024 Billing Provider: REDD RODAS Common Visit Codes: [id number] INP/OBS CARE (HIGH) REDD RODAS Jul 23, 2024 00:03
[2024-07-23] MEDS: AZITHROMYCIN 500MG/ 250ML 250 ML IV ONE (00:19)
[2024-07-23] MEDS: ONDANSETRON HCL 4 MG/2 ML VIAL IV PRN (00:35)
[2024-07-23] MEDS: ACETAMINOPHEN 325 MG TAB PO PRN (00:38)
[2024-07-23] MEDS: ACCU-CHEK COMFORT CURVE STRIP VI SCH (06:27)
[2024-07-23] MEDS: InsuLIN REG 1unit/0.01ml Soln (100units/ml) SC SCH (06:34)
[2024-07-23] MEDS: DULoxetine HCL 30 MG CAP PO SCH (10:01)
[2024-07-23] MEDS: ATENOLOL 25 MG TAB PO SCH (10:03)
[2024-07-23] MEDS: GABAPENTIN 400 MG CAP PO SCH (10:03)
[2024-07-23] MEDS: hydroCHLOROthiazide 25 MG TAB PO SCH (10:04)
[2024-07-23] MEDS: ASPirin 81 mg TAB PO SCH (10:04)
[2024-07-23] MEDS: ENOXAPARIN SOD 40 MG/0.4 ML SYRINGE SC SCH (10:05)
--- NOTE | 2024-07-23 12:45 | DVHPN2 ---
Reviewed: Care Plan, H&P, Labs, Medications, Previous Orders, Radiology Changes from previous H/P or p: No Changes Objective Vitals Vital Signs Date Time Temp Pulse Resp B/P (MAP) Pulse Ox O2 Delivery O2 Flow Rate FiO2 07/23/24 10:04 138/77 07/23/24 10:03 67 07/23/24 09:00 97.7 15 100 97.7 07/23/24 08:10 Room Air* 0 21 Intake/Output Intake and Output 07/23/24 07:00 Intake Total 665 ml Balance 665 ml Intake Oral 240 ml IV Total 425 ml Medications Current Medications Medications Dose Ordered Sig/Sadia Route Start Time Stop Time Status Last Admin Dose Admin Atenolol 25 mg DAILY PO 07/23/24 10:00 07/23/24 10:03 25 MG Aspirin 81 mg DAILY PO 07/23/24 10:00 07/23/24 10:04 81 MG Hydrochlorothiazide 25 mg DAILY PO 07/23/24 10:00 07/23/24 10:04 25 MG Atorvastatin Calcium 80 mg HS PO 07/23/24 22:00 Gabapentin 800 mg BID PO 07/23/24 10:00 07/23/24 10:03 800 MG Duloxetine HCl 60 mg DAILY PO 07/23/24 10:00 07/23/24 10:01 60 MG Hydralazine HCl 10 mg Q6HP PRN IV 07/22/24 23:30 Albuterol 2.5 mg Q6HPRN PRN NEB 07/22/24 23:30 Azithromycin 250 ml @ 125 mls/hr DAILY@2100 IV 07/23/24 21:00 Diagnostic Test (Pha) 1 strip ACHS 07/23/24 07:00 07/23/24 11:42 1 STRIP Insulin Human Regular ACHS SC 07/23/24 07:00 07/23/24 11:43 3 UNITS Dextrose 50 ml UD PRN IV 07/22/24 23:30 Ondansetron HCl 4 mg Q4HP PRN IV 07/22/24 23:30 07/23/24 00:35 4 MG Enoxaparin Sodium 40 mg DAILY SC 07/23/24 10:00 07/23/24 10:05 40 MG Acetaminophen 650 mg Q6HP PRN PO 07/22/24 23:30 07/23/24 00:38 650 MG Laboratory Results Laboratory Tests 07/22/24 19:23 Chemistry Test 07/22/24 19:23 Albumin 4.9 g/dL (3.2-4.8) H Calcium Level 10.8 mg/dL (8.7-10.4) H Total Protein 7.8 g/dL (5.7-8.2) LFT Test 07/22/24 19:23 Alanine Aminotransferase (ALT) 24 U/L (7-40) Alkaline Phosphatase 163 U/L (46-116) H Aspartate Amino Transferase (AST) 24 U/L (13-40) Total Bilirubin 0.4 mg/dL (0.2-1.0) HgA1c, TSH Test 07/22/24 19:23 Thyroid Stimulating Hormone (TSH) 1.07 uIU/mL (0.55-4.78) Labs and/or images reviewed: Labs reviewed by me, Image(s) reviewed by me Assessment/Plan Assessment/Plan Sepsis secondary to community-acquired pneumonia Community-acquired right lower lobe pneumonia Gram-positive versus Gram- negative, Rocephin azithromycin Acute generalized weakness Hypertensive emergency with blood pressure 200 systolic Uncontrolled diabetes: Insulin sliding scale, A1c History of CVA with right-sided weakness Time Spent 50 minutes Advanced care planning time 20 minutes Patient is full code Plan discussed with: Patient Date of Service: Jul 23, 2024 Billing Provider: LIZBET OCONNELL MD Common Visit Codes: [id number] INP/OBS CARE(HIGH) Secondary Visit Codes: [id number] CARE PLAN 30 MINUTES LIZBET OCONNELL MD Jul 23, 2024 12:45
--- NOTE | 2024-07-23 13:41 | DVHSR ---
APPROVED REPORT EXAM: Two-dimensional and M-mode echocardiogram with Doppler and color Doppler. Blood Pressure: 115/51 mmHg INDICATION Hypertension RISK FACTORS Height: 63, Weight: 171 DIMENSIONS LVDd3.9 (3.8-5.7cm)LA (2D)4.0 (1.9-4.0cm)Aortic Root3.3 (2.0-3.7cm) LVDs2.2 (2.5-4.0cm)LA (MM) (1.9-4.0cm)Aortic Cusp Exc1.6 (1.5-2.0cm) EF (%) 75.0 (55-70%)Rt. Atrium3.6 (1.9-4.0cm)Asc. Aorta cm IVSd1.2 (0.7-1.1cm)RV (D) (1.8-2.4cm) PWd1.4 (0.7-1.1cm) Mitral Valve MitralMitral Stenosis E wave0.81m/sMV Mean GR.mmHg A wave1.10m/sMV Peak GR.91mmHg E/A ratio0.72D MVAcm2 DECEL [id number] 1/2 Syho68ia IVRTmsDop MVA2.32cm2 Aortic Valve Aortic ValveAortic Stenosis V10.92m/Rusty Mean GR.3mmHg V21.28m/Rusty Peak GR.7mmHg LVOT Diameter1.8 (1.8-2.4cm)Doppler AVA1.83cm2 Pulmonic Valve V20.93m/s Tricuspid Valve TR Velocity1.71m/s [id number] Conclusion lvef 70% moderate LVH grade 1 diastolic dysfunction normal rv function left atrium enlarged no severe valve abnormaliteis noted
[2024-07-23] MEDS: cefTRIAXone 1GM/50ML D5W 50 ML IV ONE (15:48)
[2024-07-23] MEDS: AZITHROMYCIN 500MG/ 250ML 250 ML IV SCH (21:20)
[2024-07-23] MEDS: ATORVASTATIN 20 MG TAB PO SCH (21:20)
[2024-07-24] VITALS (9 sets, daily range): BP systolic 125–155; BP diastolic 61–76; PULSE 67–82; RESP 15–19; TEMP 89.2–98.1; O2SAT 91–98
--- NOTE | 2024-07-24 08:29 | DVHPN2 ---
Reviewed: Care Plan, H&P, Labs, Medications, Previous Orders, Radiology Changes from previous H/P or p: No Changes Objective Vitals Vital Signs Date Time Temp Pulse Resp B/P (MAP) Pulse Ox O2 Delivery O2 Flow Rate FiO2 07/24/24 05:48 98 Nasal Cannula 2.0 07/24/24 05:48 28 07/24/24 05:00 97.6 72 18 138/76 (96) 97.6 Intake/Output Intake and Output 07/24/24 07:00 Intake Total 925 ml Balance 925 ml Intake Oral 625 ml IV Total 300 ml # Voids 1 Medications Current Medications Medications Dose Ordered Sig/Sadia Route Start Time Stop Time Status Last Admin Dose Admin Atenolol 25 mg DAILY PO 07/23/24 10:00 07/23/24 10:03 25 MG Aspirin 81 mg DAILY PO 07/23/24 10:00 07/23/24 10:04 81 MG Hydrochlorothiazide 25 mg DAILY PO 07/23/24 10:00 07/23/24 10:04 25 MG Atorvastatin Calcium 80 mg HS PO 07/23/24 22:00 07/23/24 21:20 80 MG Gabapentin 800 mg BID PO 07/23/24 10:00 07/23/24 21:20 800 MG Duloxetine HCl 60 mg DAILY PO 07/23/24 10:00 07/23/24 10:01 60 MG Hydralazine HCl 10 mg Q6HP PRN IV 07/22/24 23:30 Albuterol 2.5 mg Q6HPRN PRN NEB 07/22/24 23:30 Azithromycin 250 ml @ 125 mls/hr DAILY@2100 IV 07/23/24 21:00 07/23/24 21:20 125 MLS/HR Diagnostic Test (Pha) 1 strip ACHS 07/23/24 07:00 07/24/24 06:29 1 STRIP Insulin Human Regular ACHS SC 07/23/24 07:00 07/24/24 06:27 3 UNITS Dextrose 50 ml UD PRN IV 07/22/24 23:30 Ondansetron HCl 4 mg Q4HP PRN IV 07/22/24 23:30 07/23/24 00:35 4 MG Enoxaparin Sodium 40 mg DAILY SC 07/23/24 10:00 07/23/24 10:05 40 MG Acetaminophen 650 mg Q6HP PRN PO 07/22/24 23:30 07/23/24 00:38 650 MG Ceftriaxone Sodium 50 ml @ 100 mls/hr DAILY@09 IV 07/24/24 09:00 Laboratory Results Laboratory Tests 07/22/24 19:23 HgA1c, TSH Test 07/23/24 13:01 Hemoglobin A1c 8.9 % A1C (<5.7) H Labs and/or images reviewed: Labs reviewed by me, Image(s) reviewed by me Assessment/Plan Assessment/Plan Sepsis secondary to community-acquired pneumonia Community-acquired right lower lobe pneumonia Gram-positive versus Gram- negative, Rocephin azithromycin Acute generalized weakness Hypertensive emergency with blood pressure 200 systolic Uncontrolled diabetes: Insulin sliding scale, A1c History of CVA with right-sided weakness Time Spent 52 minutes Advanced care planning time 20 minutes Patient is full code Plan discussed with: Patient My Orders Orders - LIZBET OCONNELL MD Procedure Category Date Status Time Urinalysis LAB 07/23/24 Logged 12:41 Ceftriaxone 1gm/50ml PHA 07/24/24 In Process D5w (Rocephin) 09:00 Date of Service: Jul 24, 2024 Billing Provider: LIZBET OCONNELL MD Common Visit Codes: [id number] INP/OBS CARE(HIGH) LIZBET OCONNELL MD Jul 24, 2024 08:29
[2024-07-24] MEDS: cefTRIAXone 1GM/50ML D5W 50 ML IV SCH (08:54)
[2024-07-25 01:00] VITALS: BP 154/85; PULSE 77; RESP 18; TEMP 96.7; O2SAT 93
[2024-07-25 05:00] VITALS: BP 140/66; PULSE 88; RESP 17; TEMP 95.2; O2SAT 95
[2024-07-25 08:00] VITALS: O2SAT 94
--- NOTE | 2024-07-25 08:08 | DVHPN2 ---
Reviewed: Care Plan, H&P, Labs, Medications, Previous Orders, Radiology Changes from previous H/P or p: No Changes Objective Vitals Vital Signs Date Time Temp Pulse Resp B/P (MAP) Pulse Ox O2 Delivery O2 Flow Rate FiO2 07/25/24 05:00 95.2 88 17 140/66 (90) 95 95.2 07/24/24 20:00 Room Air* 0 N/A Nasal Cannula* Intake/Output Intake and Output 07/25/24 07:00 Intake Total 2200 ml Balance 2200 ml Intake Oral 1900 ml IV Total 300 ml # Voids 3 Medications Current Medications Medications Dose Ordered Sig/Saida Route Start Time Stop Time Status Last Admin Dose Admin Atenolol 25 mg DAILY PO 07/23/24 10:00 07/24/24 08:56 25 MG Aspirin 81 mg DAILY PO 07/23/24 10:00 07/24/24 08:56 81 MG Hydrochlorothiazide 25 mg DAILY PO 07/23/24 10:00 07/24/24 08:55 25 MG Atorvastatin Calcium 80 mg HS PO 07/23/24 22:00 07/24/24 21:03 80 MG Gabapentin 800 mg BID PO 07/23/24 10:00 07/24/24 21:03 800 MG Duloxetine HCl 60 mg DAILY PO 07/23/24 10:00 07/24/24 08:55 60 MG Hydralazine HCl 10 mg Q6HP PRN IV 07/22/24 23:30 Azithromycin 250 ml @ 125 mls/hr DAILY@2100 IV 07/23/24 21:00 07/24/24 21:10 125 MLS/HR Diagnostic Test (Pha) 1 strip ACHS 07/23/24 07:00 07/25/24 06:05 1 STRIP Insulin Human Regular ACHS SC 07/23/24 07:00 07/25/24 06:11 4 UNITS Dextrose 50 ml UD PRN IV 07/22/24 23:30 Ondansetron HCl 4 mg Q4HP PRN IV 07/22/24 23:30 07/23/24 00:35 4 MG Enoxaparin Sodium 40 mg DAILY SC 07/23/24 10:00 07/24/24 08:56 40 MG Acetaminophen 650 mg Q6HP PRN PO 07/22/24 23:30 07/23/24 00:38 650 MG Ceftriaxone Sodium 50 ml @ 100 mls/hr DAILY@09 IV 07/24/24 09:00 07/24/24 08:54 100 MLS/HR Laboratory Results Laboratory Tests 07/22/24 19:23 Labs and/or images reviewed: Labs reviewed by me, Image(s) reviewed by me Assessment/Plan Assessment/Plan Sepsis secondary to community-acquired pneumonia Community-acquired right lower lobe pneumonia Gram-positive versus Gram- negative, Rocephin azithromycin Acute generalized weakness Hypertensive emergency with blood pressure 200 systolic Uncontrolled Insulin dependent diabetes: Insulin sliding scale, A1c 8.9 History of CVA with right-sided weakness Patient feels better and wants to go home Plan discussed with: Patient Date of Service: Jul 25, 2024 Billing Provider: LIZBET OCONNELL MD Common Visit Codes: [id number] INP/OBS CARE(HIGH) LIZBET OCONNELL MD Jul 25, 2024 08:08
[2024-07-25] MEDS ORDERED: AZIT500T66 PO (08:09)
[2024-07-25] MEDS ORDERED: METO-158 PO (08:09)
--- NOTE | 2024-07-25 08:13 | DVHDS2 ---
Discharge Summary Date of Admission Jul 22, 2024 at 23:21 Date of Discharge: Jul 25, 2024 Admitting Diagnosis Generalized weakness Wounds: None Labs/Diagnostic Data: Laboratory Results Test 07/25/24 06:04 07/23/24 13:01 07/22/24 19:23 POC Glucose 233 mg/dl (70-106) Hemoglobin A1c 8.9 % A1C (<5.7) White Blood Count 10.3 10^3/uL (4.4-10.8) Red Blood Count 5.37 10^6/uL (4.0-5.20) Hemoglobin 14.8 g/dL (12.2-16.2) Hematocrit 44.1 % (36.0-46.0) Mean Corpuscular Volume 82.1 fL (80.0-100.0) Mean Corpuscular Hemoglobin 27.6 pg (28.0-32.0) Mean Corpuscular Hemoglobin Concent 33.6 g/dL (32.0-36.0) Red Cell Distribution Width 14.5 % (11.8-14.3) Platelet Count 297 10^3/uL (140-450) Mean Platelet Volume 8.4 fL (6.9-10.8) Neutrophils (%) (Auto) 60.1 % (37.0-80.0) Lymphocytes (%) (Auto) 31.7 % (10.0-50.0) Monocytes (%) (Auto) 5.6 % (0.0-12.0) Eosinophils (%) (Auto) 1.8 % (0.0-7.0) Basophils (%) (Auto) 0.8 % (0.0-2.0) Neutrophils # (Auto) 6.2 10 ^3/uL (1.6-8.6) Lymphocytes # (Auto) 3.3 10 ^3/uL (0.4-5.4) Monocytes # (Auto) 0.6 10 ^3/uL (0-1.3) Eosinophils # (Auto) 0.2 10 ^3/uL (0-0.8) Basophils # (Auto) 0.1 10 ^3/uL (0-0.2) Nucleated Red Blood Cells 0.2 % Sodium Level 141 mmol/L (136-145) Potassium Level 3.6 mmol/L (3.5-5.1) Chloride Level 103 mmol/L (98-107) Carbon Dioxide Level 27 mmol/L (20-31) Anion Gap 11 (5-15) Blood Urea Nitrogen 9 mg/dL (9-23) Creatinine 0.65 mg/dL (0.550-1.02) Glomerular Filtration Rate Calc 99 mL/min (>90) BUN/Creatinine Ratio 13.8 (10.0-20.0) Serum Glucose 248 mg/dL (74-106) Calcium Level 10.8 mg/dL (8.7-10.4) Total Bilirubin 0.4 mg/dL (0.2-1.0) Aspartate Amino Transferase (AST) 24 U/L (13-40) Alanine Aminotransferase (ALT) 24 U/L (7-40) Alkaline Phosphatase 163 U/L (46-116) Total Protein 7.8 g/dL (5.7-8.2) Albumin 4.9 g/dL (3.2-4.8) Thyroid Stimulating Hormone (TSH) 1.07 uIU/mL (0.55-4.78) Other Laboratory Tests 07/22/24 19:23 Brief Hx & Hospital Course: 63-year-old female with a history of insulin-dependent diabetes hypotension history of CVA with the right-sided weakness came in complaining of generalized weakness found to be in sepsis secondary to pneumonia chest x-ray showed right- sided lower lobe pneumonia treated with Rocephin azithromycin blood sugar was high with a A1c 8.9 treated with the insulin sliding scale blood pressure was also high 200 systolic treated with the medications came down he does not take any medication for the blood pressure. At the time of discharge patient is alert awake oriented x3 vital signs stable afebrile and wants to go home. Discharged home on azithromycin for pneumonia and metoprolol tartrate for the hypotension . she will continue her regular insulin and long-acting insulin for diabetes and follow up with the primary Dr. Consults/Reason for consult None Operations or Procedures Echocardiogram Condition at Discharge: Fair Final Diagnosis/Problems List Sepsis secondary to community-acquired pneumonia Community-acquired right lower lobe pneumonia Gram-positive versus Gram-negative, Rocephin azithromycin Acute generalized weakness Hypertensive emergency with blood pressure 200 systolic Uncontrolled Insulin dependent diabetes: Insulin sliding scale, A1c 8.9 History of CVA with right-sided weakness Discharge Disposition: Home Discharge Instruct/Medications Diet: Consistent carbohydrate, Cardiac 2g Na,low cholest Activity: Light activity Follow Up/Referral: Resume all previous home medications Follow up with the primary Dr in one week Check Blood sugars 3 times a day and take insulin appropriately Medications: Metoprolol tartrate Azithromycin Transmitted to [facility] pharmacy 39 (Time taken for discharge summary 39 minutes) Discharge Statement: "Patient was advised to return to the ER or call 911 if any headaches, dizziness, shortness of breath, chest pain, abdominal pain, bleeding, fevers, or worsening of medical condition. Patient was counseled about treatment plan, medications, possible side effects, patientverbalized understanding. All questions were answered to the best of my ability. This discharge took greater then 30 minutes in planning, reviewing documentation, counseling the patient, and discussing with other team members." ASSESSMENT ASSESSMENT Hospital Course Improved Assessment Sepsis secondary to community-acquired pneumonia Community-acquired right lower lobe pneumonia Gram-positive versus Gram- negative, Rocephin azithromycin Acute generalized weakness Hypertensive emergency with blood pressure 200 systolic Uncontrolled Insulin dependent diabetes: Insulin sliding scale, A1c 8.9 History of CVA with right-sided weakness Date of Service: Jul 25, 2024 Billing Provider: LIZBET OCONNELL MD Common Visit Codes: [id number] DISCH DAY >30min LIZBET OCONNELL MD Jul 25, 2024 08:13
[2024-07-25 09:00] VITALS: BP 135/51; PULSE 85; RESP 16; TEMP 97.4; O2SAT 92
[2024-07-25 10:10] VITALS: BP 120/65; PULSE 82
--- NOTE | 2024-07-27 13:05 | ECG ---
[facility] Test Date: 2024-07-22 Test Time: 19:00:11 Pat Name: ELLEN DIAZ Department: ER Room: 0216 B Gender: F Coil Connector: NELL : 1960 Requested By: VASILIY MERRITT Order Number: [id number] Reading MD: Gustavo Lu Measurements Intervals [place] Rate: 74 P: 40 NC: 145 QRS: 0 QRSD: 91 T: 0 QT: 404 QTc: 449 Interpretive Statements Sinus rhythm Anterior infarct, old Minimal ST depression, inferior leads Electronically Signed On 07-28-2024 17:25:01 PDT by Gustavo Lu Please click the below link to view image of tracing.
== END 2024-07-25 10:44 | disposition home or self-care (01) | DRG 304 ==
LOC: ER 18:38 → OVERFLOW 23:21 → CENTRAL 07-23 06:05
PROVIDERS: ADMIT Family Medicine; ATTEND Family Medicine
DX: I16.1 Hypertensive emergency (principal); J15.69 Pneumonia due to other Gram-negative bacteria; J15.9 Unspecified bacterial pneumonia; I69.351 Hemiplegia and hemiparesis following cerebral infarction affecting right dominant side; E11.65 Type 2 diabetes mellitus with hyperglycemia; Z79.4 Long term (current) use of insulin; I10 Essential (primary) hypertension; Z88.5 Allergy status to narcotic agent
CPT/HCPCS: 36415; 70450; 71045; 80053; 82962; 83036; 84443; 85025; 93005; 93306; 96365; 96375; 97110; 97116; 97163; G0378; J1815; J2405

== ENCOUNTER 2024-12-01 10:28 | Emergency (ER) | payer OTHER ==
[~2024-12-01] VITALS: Ht 157.5 cm; Wt 78.2 kg
[~2024-12-01 10:28] MED LIST changes: +AZIT500T66 PO; +METO-158 PO
[2024-12-01 11:19] LABS: Hematocrit 43.2 % (36.0-46.0); Hemoglobin 14.8 g/dL (12.2-16.2); Mean Corpuscular Hemoglobin 27.9 pg (28.0-32.0); Mean Corpuscular Volume 81.7 fL (80.0-100.0); Nucleated Red Blood Cells % 0.1 %
[2024-12-01 11:25] LABS: Chloride 106 mmol/L (98-107); Potassium 3.9 mmol/L (3.5-5.1); Sodium 143 mmol/L (136-145)
[2024-12-01 11:26] LABS: Anion Gap 13 (5-15); Calcium 9.7 mg/dL (8.7-10.4); Carbon Dioxide 24 mmol/L (20-31)
--- NOTE | 2024-12-01 11:26 | ED.PDOC ---
Musculoskeletal HPI Comments 64-year-old female who presents to the ED with a chief complaint of left arm pain. Patient is accompanied by daughter states patient has been having experiencing significant pain in the left arm since Saturday morning which began after waking. Patient states the pain is severe and consistent affecting the arm from the elbow down to the hand. Patient has been taking Tylenol for relief with the pain returns when the medication wears off. Patient states the pain occurs both when his arm is at rest and with movement. Patient denies any recent trauma or injury to the arm. Patient states they came to the ED because the pain has lasted several days which is unusual. Patient has a significant history of fall resulting in a broken right hip, past heart attack and diabetes Chief Complaint: Upper Extremity Time Seen by MD: 11:24 Reviewed Notes: Medications, Allergies Allergies: Coded Allergies: Codeine (Verified Allergy, Mild, bp drops, 04/18/24) Per patient Home Meds Active Scripts Ibuprofen Micronized (Ibuprofen) 800 Mg Tab, 800 MG PO Q8HP PRN for 10 Days, #30 TAB 0 Refills Prov:TERESO STRINGER NP 12/01/24 Metoprolol Tartrate (Metoprolol Tartrate) 50 Mg Tab, 50 MG PO BID, #180 TAB Prov:LIZBET OCONNELL MD 07/25/24 Azithromycin (Azithromycin) 500 Mg Tab, 1 TAB PO DAILY, #7 TAB Prov:LIZBET OCONNELL MD 07/25/24 Tramadol Hcl (Tramadol Hcl) 50 Mg Tab, 50 MG PO Q6HP PRN, #20 TAB prn breakthrough pain Prov:DENISE HANNA MD 04/18/24 Ibuprofen Micronized (Ibuprofen) 800 Mg Tab, 800 MG PO Q8HP PRN, #30 TAB prn pain, take with food Prov:DENISE HANNA MD 04/18/24 Information Source: Patient, Relative Mode of Arrival: Wheelchair Brought in by: Daughter Past Medical History PAST MEDICAL HISTORY: CVA, HTN, [place] Surgical History (Other): Right hip fracture ART GLASS SETTER History: Denies all ART GLASS SETTER Hx Family History Family History: Unknown Social History Smoker: Non-Smoker Alcohol: Denies ETOH Use Drugs: Denies Drug Use Lives In: Home Constitutional: denies: chills, diaphoresis, fatigue, fever, malaise, sweats, weakness, others EENTM: denies: blurred vision, double vision, ear bleeding, ear discharge, ear drainage, ear pain, ear ringing, eye pain, eye redness, hearing loss, mouth pain, mouth swelling, nasal discharge, nose bleeding, nose congestion, nose pain, photophobia, tearing, throat pain, throat swelling, voice changes, others Respiratory: denies: cough, hemoptysis, orthopnea, SOB at rest, shortness of breath, SOB with excertion, stridor, wheezing, others Cardiovascular: denies: chest pain, dizzy spells, diaphoresis, Dyspnea on e xertion, edema, irregular heart beat, left arm pain, lightheadedness, palpitations, PND, syncope, others Gastrointestinal: denies: abdomen distended, abdominal pain, blood streaked bowels, constipated, diarrhea, dysphagia, difficulty swallowing, hematemesis, melena, nausea, poor appetite, poor fluid intake, rectal bleeding, rectal pain, vomiting, others Genitourinary: denies: abnormal vagina bleeding, burning, dyspareunia, dysuria, flank pain, frequency, hematuria, incontinence, pain, , vagina discharge, urgency, others Neurological: denies: dizziness, fainting, headache, left sided numbness, left sided weakness, numbness, paresthesia, pre-existing deficit, right sided numbness, right sided weakness, seizure, speech problems, tingling, tremors, weakness, others Musculoskeletal: reports: joint pain, joint swelling; denies: back pain, gout, muscle pain, muscle stiffness, neck pain, others Integumetry: denies: bruises, change in color, change in hair/nails, dryness, laceration, lesions, lumps, rash, wounds, others Allergic/Immunocompromised: denies: Difficulty Healing, Frequent Infections, Hives, Itching, others Hematologic/Lymphatic: denies: anemia, blood clots, easy bleeding, easy bruis ing, swollen glands, others Endocrine: denies: excessive hunger, excessive sweating, excessive thirst, exc essive urination, flushing, intolerance to cold, intolerance to heat, unexplained weight gain, unexplained weight loss, others Psychiatric: denies: anxiety, bipolar disorder, depression, hopeless, panic disorder, schizophrenia, sleepless, suicidal, others All Other Systems: Reviewed and Negative Physical Exam General Appearance: No Apparent Distress, Normal HEENT: Normal ENT Inspection, Pharynx Normal, TMs Normal Neck: Full Range of Motion, Non-Tender, Normal, Normal Inspection Respiratory: Chest Non-Tender, Lungs Clear, No Accessory Muscle Use, No Respiratory Distress, Normal Breath Sounds Cardiovascular: No Edema, No JVD, No Murmur, No Gallop, Normal Peripheral Pulses, Regular Rate/Rhythm Breast Exam: Deferred Gastrointestinal: No Organomegaly, Non Tender, No Pulsatile Mass, Normal Bowel Sounds, Soft Genitalia: Deferred Pelvic: Deferred Rectal: Deferred Extremities: Other (Left upper extremity no obvious deformity to to the left elbow wrist, localized tenderness to the lateral epicondyle radial pulses 2+ neurovascular intact good ROM) Musculoskeletal : Location: Left Extremity Location: Elbow (No deformity. Pain with flexion-extension. Distal neurovascular sensation intact) Apperance: Normal Neurologic: Alert, sprayer insecticide II-XII nml as Tested, No Motor Deficits, Normal Affect, Normal Mood, No Sensory Deficits Cerebellar Function: Normal Reflexes: Normal Skin: Dry, Normal Color, Warm Lymphatic: No Adenopathy Was a procedure done? Was a procedure done?: No Differential Diagnosis EXT Differential Diagnosis: Fracture, Sprain, Dislocation, DJD, Rheumatoid, Neurovascular injury, Arthritis X-Ray, Labs, Meds, VS Vital Signs Date Time Temp Pulse Resp B/P (MAP) Pulse Ox O2 Delivery O2 Flow Rate FiO2 12/01/24 12:36 98.7 87 16 152/89 (110) 96 98.7 12/01/24 12:36 87 17 96 Room Air 12/01/24 10:30 99.2 84 18 165/98 94 99.2 Lab Test 12/01/24 11:22 12/01/24 11:09 Range/Units Urine Color Yellow Yellow Urine Clarity Clear Clear Urine pH 7.0 5.0-9.0 Urine Specific [place] 1.018 1.001-1.035 Urine Protein Trace H Negative Urine Ketones Negative Negative Urine Blood Negative Negative /uL Urine Nitrite Negative Negative Urine Bilirubin Negative Negative Urine Urobilinogen Normal Negative mg/dL Urine Leukocyte Esterase 1+ Negative /uL Urine RBC 2 0 - 4 /hpf Urine Microscopic WBC 12 H 0-5 /HPF Urine Squamous Epithelial Cells Few <5 /hpf Urine Bacteria None seen None Seen /hpf Urine Glucose Normal Normal mg/dL White Blood Count 10.6 4.4-10.8 10^3/uL Red Blood Count 5.29 H 4.0-5.20 10^6/uL Hemoglobin 14.8 12.2-16.2 g/dL Hematocrit 43.2 36.0-46.0 % Mean Corpuscular Volume 81.7 80.0-100.0 fL Mean Corpuscular Hemoglobin 27.9 L 28.0-32.0 pg Mean Corpuscular Hemoglobin Concent 34.1 32.0-36.0 g/dL Red Cell Distribution Width 13.6 11.8-14.3 % Platelet Count 288 140-450 10^3/uL Mean Platelet Volume 8.0 6.9-10.8 fL Neutrophils (%) (Auto) 67.1 37.0-80.0 % Lymphocytes (%) (Auto) 25.2 10.0-50.0 % Monocytes (%) (Auto) 4.2 0.0-12.0 % Eosinophils (%) (Auto) 2.8 0.0-7.0 % Basophils (%) (Auto) 0.7 0.0-2.0 % Neutrophils # (Auto) 7.1 1.6-8.6 10 ^3/uL Lymphocytes # (Auto) 2.7 0.4-5.4 10 ^3/uL Monocytes # (Auto) 0.4 0-1.3 10 ^3/uL Eosinophils # (Auto) 0.3 0-0.8 10 ^3/uL Basophils # (Auto) 0.1 0-0.2 10 ^3/uL Nucleated Red Blood Cells 0.1 % Sodium Level 143 136-145 mmol/L Potassium Level 3.9 3.5-5.1 mmol/L Chloride Level 106 98-107 mmol/L Carbon Dioxide Level 24 20-31 mmol/L Anion Gap 13 5-15 Blood Urea Nitrogen 9 9-23 mg/dL Creatinine 0.57 0.550-1.02 mg/dL Glomerular Filtration Rate Calc 102 >90 mL/min BUN/Creatinine Ratio 15.8 10.0-20.0 Serum Glucose 108 H 74-106 mg/dL Calcium Level 9.7 8.7-10.4 mg/dL [facility] [id number] [place] [id number] Ph: [phone] DIAGNOSTIC IMAGING Diagnostic Imaging Report : [id number] Signed PATIENT: ELLEN DIAZ ACCT: [id number] UNIT: [id number] : 1960 LOC: ER ROOM / BED: / AGE / SEX: 64 / F ADM STATUS: REG ER SERVICE 1050 ORDERING PHYSICIAN: TERESO STRINGER MULTIMEDIA COORDINATOR PROCEDURE(s): LHAN - L HAND 3V XRAY REASON: r/o fracture ORDER NUMBER(s): [id number], ACCESSION NUMBER(s): [id number] Indication: r/o fracture Technique: XY L HAND 3V XRAYXY Comparison: None FINDINGS/IMPRESSION: No radiographic evidence for acute fracture or dislocation. Moderate degenerate changes of the left wrist. Oasf-he-lpxhomeq degenerative changes of the IP joints . Left wrist and dorsal hand soft tissue edema. ATED BY: ERICA RIOS MD DICTATED DATE/TIME: 12/01/24 115 SIGNED BY: ERICA RIOS MD SIGNED DATE/TIME: 12/01/24 115 CC: [place] [id number] Ph: [phone] DIAGNOSTIC IMAGING Diagnostic Imaging Report : [id number] Signed PATIENT: ELLEN DIAZ ACCT: [id number] UNIT: [id number] : 1960 LOC: ER ROOM / BED: / AGE / SEX: 64 / F ADM STATUS: REG ER SERVICE 1050 ORDERING PHYSICIAN: TERESO STRINGER MULTIMEDIA COORDINATOR PROCEDURE(s): LELB3 - L ELBOW 3 VIEW XRAY REASON: r/o fracture ORDER NUMBER(s): [id number], ACCESSION NUMBER(s): [id number] Indication: r/o fracture Technique: XY L ELBOW 3 VIEW XRAYXY Comparison: None FINDINGS/IMPRESSION: No radiographic evidence for acute fracture or dislocation. Mineralization of the medial and lateral humeral epicondyles likely sequela of chronic epicondylitis. No significant joint effusion. ATED BY: ERICA RIOS MD DICTATED DATE/TIME: 12/01/24 115 SIGNED BY: ERICA RIOS MD SIGNED DATE/TIME: 12/01/24 1154 CC: X-Ray, Labs, Meds, VS Comment Patient arrives alert and oriented, ABC's intact, afebrile, vital signs stable, saturating well in room air Peripheral IV insertion+ labs were ordered. CBC was ordered to exclude anemia, blood loss, or infection. BMP was ordered to exclude electrolyte abnormalities, renal failure, dehydration, hyperglycemia Urinalysis was ordered to rule out UTI or hematuria. Diagnostic imaging ordered by me and results interpreted by radiology : FINDINGS/IMPRESSION: No radiographic evidence for acute fracture or dislocation. Moderate degenerate changes of the left wrist. Wnkt-on-dillmdhy degenerative changes of the IP joints . Left wrist and dorsal hand soft tissue edema. FINDINGS/IMPRESSION: No radiographic evidence for acute fracture or dislocation. Mineralization of the medial and lateral humeral epicondyles likely sequela of chronic epicondylitis. No significant joint effusion. On reevaluation, patient had symptomatic improvement. Patient is stable for discharge at this time. External notes reviewed. Test results and diagnostic imaging interpreted. All diagnostic findings, discharge care, education and instructions provided Follow-up with PCP in 2 to 3 days Patient verbalized understanding and agreed to treatment plan Vital signs stable, afebrile, no acute distress noted Patient ambulatory with strong steady gait Advised to return precautions for any new or worsening symptoms, return to ER immediately for re-evaluation Patient is aware that the purpose of this visit was for an acute medical emergency requiring emergent stabilization. Chronic conditions, including malignancies have not been ruled out. Patient is instructed to follow up with PCP as directed and discharge instructions for continued care and workup. If unable to arrange follow-up, patient is to return to the emergency department f or reassessment. Patient (parent or legal guardian if applicable) was given verbal and written discharge instructions and acknowledges understanding. Additional MDM Review of External, Non-ED records: External records reviewed. Discussion with independent historian (EMS, family) history obtained from the patient/parents (if applicable) at bedside Chronic conditions affecting care: None Social determinants of health affecting care: None Consideration of admission (observation or admission): I considered escalation of care to admission for this patient, however given the reassuring workup, the patient is safe for outpatient management. Discussion with the Radiology: No Tests considered but not performed: Prescription medication considered but not given: 12 lead EKG interpretation: Time of 1ST Reevaluation: 12:00 Reevaluation 1ST: Unchanged Patient Education/Counseling: Diagnosis, Treatment Family Education/Counseling: Diagnosis, Treatment Departure 1 Departure Time of Disposition: 12:06 Impression: Primary Impression: Arthritis of left wrist Additional Impression: Left elbow pain Disposition: HOME / SELF CARE / HOMELESS Condition: Stable e-Prescriptions Ibuprofen Micronized (Ibuprofen) 800 Mg Tab 800 MG PO Q8HP PRN for 10 Days, #30 TAB 0 Refills Prov: TERESO STRINGER NP 12/01/24 Critical Care Note Critical Care Time?: No Stability Stability form required: No Heart Score Heart Score: Heart Score Response (Comments) Value History N/A 0 EKG N/A 0 Age N/A 0 Risk Factors N/A 0 Troponin N/A 0 Total 0 I personally scribed for TERESO STRINGER NP ([email or web address]) on 12/01/24 at 11:26. Electronically submitted by Humberto Amaya ([email or web address]). I personally scribed for TERESO STRINGER NP ([email or web address]) on 12/01/24 at 11:56. Electronically submitted by Humberto Amaya ([email or web address]). TERESO STRINGER NP Dec 01, 2024 11:26
[2024-12-01 11:30] LABS: Urine Protein, UAD TRACE (Negative)
[2024-12-01 11:31] LABS: BUN/Creatinine Ratio 15.8 (10.0-20.0); Blood Urea Nitrogen 9 mg/dL (9-23); Glucose 108 mg/dL (74-106)
--- NOTE | 2024-12-01 11:52 | DVH ---
Indication: r/o fracture Technique: XY L ELBOW 3 VIEW XRAYXY Comparison: None FINDINGS/IMPRESSION: No radiographic evidence for acute fracture or dislocation. Mineralization of the medial and lateral humeral epicondyles likely sequela of chronic epicondylitis. No significant joint effusion.
--- NOTE | 2024-12-01 11:53 | DVH ---
Indication: r/o fracture Technique: XY L HAND 3V XRAYXY Comparison: None FINDINGS/IMPRESSION: No radiographic evidence for acute fracture or dislocation. Moderate degenerate changes of the left wrist. Lddu-yb-smalsncn degenerative changes of the IP joints . Left wrist and dorsal hand soft tissue edema.
[2024-12-01] MEDS ORDERED: IBUP-1455 PO (12:06)
[2024-12-01] MEDS: KETOROLAC TROMETH 60MG/2ML VIAL IM ONE (12:17)
[2024-12-01 12:36] VITALS: BP 152/89; PULSE 87; RESP 17; TEMP 98.7; O2SAT 96
== END 2024-12-01 12:37 | disposition home or self-care (01) ==
LOC: ER 10:28
DX: M19.032 Primary osteoarthritis, left wrist (principal); E11.9 Type 2 diabetes mellitus without complications; I10 Essential (primary) hypertension; Z86.73 Personal history of transient ischemic attack (TIA), and cerebral infarction without residual deficits; Z88.5 Allergy status to narcotic agent
CPT/HCPCS: 36415; 73080; 73130; 80048; 81001; 85025; 96372; 99284; J1885

== ENCOUNTER 2025-01-08 23:43 | Emergency (ER) | payer OTHER ==
[~2025-01-08] VITALS: Ht 160 cm; Wt 81.1 kg
--- NOTE | 2025-01-09 00:24 | ED.PDOC ---
History of Present Illness HPI Comments 64-year-old female who came to ER for wound check. Patient has a history of hypertension, CVA with right-sided residuals 2021, status post right hip surgery 2023. She ambulates with a walker. For the past 2 days patient has experiencing right-sided weakness, which she simply attributed to her previous stroke. This morning she woke up with a right hip pain, where she had the surgery a year ago. She denies any recent trauma or falls. Denies any wounds Chief Complaint: Wound Check Time Seen by MD: 00:24 Reviewed Notes: Nurses Notes Allergies: Coded Allergies: Codeine (Verified Allergy, Mild, bp drops, 04/18/24) Per patient Home Meds Active Scripts Gabapentin (Once-Daily) (Gabapentin) 300 Mg Tab, 300 MG PO Q6HP PRN, #60 TAB Prov:ZAYDA BROWN MD 01/09/25 Gabapentin (Once-Daily) (Gabapentin) 300 Mg Tab, 300 MG PO Q6HP PRN, #60 TAB Prov:ZAYDA BROWN MD 01/09/25 Ibuprofen Micronized (Ibuprofen) 800 Mg Tab, 800 MG PO Q8HP PRN for 10 Days, #30 TAB 0 Refills Prov:TERESO STRINGER NP 12/01/24 Metoprolol Tartrate (Metoprolol Tartrate) 50 Mg Tab, 50 MG PO BID, #180 TAB Prov:LIZBET OCONNELL MD 07/25/24 Azithromycin (Azithromycin) 500 Mg Tab, 1 TAB PO DAILY, #7 TAB Prov:LIZBET OCONNELL MD 07/25/24 Tramadol Hcl (Tramadol Hcl) 50 Mg Tab, 50 MG PO Q6HP PRN, #20 TAB prn breakthrough pain Prov:DENISE HANNA MD 04/18/24 Ibuprofen Micronized (Ibuprofen) 800 Mg Tab, 800 MG PO Q8HP PRN, #30 TAB prn pain, take with food Prov:DENISE HANNA MD 04/18/24 Information Source: Patient Mode of Arrival: Wheelchair Past Medical History PAST MEDICAL HISTORY: CVA, HTN, [place] Surgical History (Other): Right hip surgery 2023 ART COORDINATOR History: Denies all ART COORDINATOR Hx Family History Family History: Unknown Social History Smoker: Non-Smoker Alcohol: Denies ETOH Use Drugs: Denies Drug Use Lives In: Home Constitutional: denies: chills, diaphoresis, fatigue, fever, malaise, sweats, weakness, others EENTM: denies: blurred vision, double vision, ear bleeding, ear discharge, ear drainage, ear pain, ear ringing, eye pain, eye redness, hearing loss, mouth pain, mouth swelling, nasal discharge, nose bleeding, nose congestion, nose pain, photophobia, tearing, throat pain, throat swelling, voice changes, others Respiratory: denies: cough, hemoptysis, orthopnea, SOB at rest, shortness of b reath, SOB with excertion, stridor, wheezing, others Cardiovascular: denies: chest pain, dizzy spells, diaphoresis, Dyspnea on exertion, edema, irregular heart beat, left arm pain, lightheadedness, palpitations, PND, syncope, others Gastrointestinal: denies: abdomen distended, abdominal pain, blood streaked bowels, constipated, diarrhea, dysphagia, difficulty swallowing, hematemesis, melena, nausea, poor appetite, poor fluid intake, rectal bleeding, rectal pain, vomiting, others Genitourinary: denies: abnormal vagina bleeding, burning, dyspareunia, dysuria, flank pain, frequency, hematuria, incontinence, pain, , vagina discharge, urgency, others Neurological: denies: dizziness, fainting, headache, left sided numbness, left sided weakness, numbness, paresthesia, pre-existing deficit, right sided numbness, right sided weakness, seizure, speech problems, tingling, tremors, weakness, others Musculoskeletal: reports: joint pain (Right hip); denies: back pain, gout, joint swelling, muscle pain, muscle stiffness, neck pain, others Integumetry: denies: bruises, change in color, change in hair/nails, dryness, l aceration, lesions, lumps, rash, wounds, others Allergic/Immunocompromised: denies: Difficulty Healing, Frequent Infections, Hives, Itching, others Hematologic/Lymphatic: denies: anemia, blood clots, easy bleeding, easy bruising, swollen glands, others Endocrine: denies: excessive hunger, excessive sweating, excessive thirst, excessive urination, flushing, intolerance to cold, intolerance to heat, unexplained weight gain, unexplained weight loss, others Psychiatric: denies: anxiety, bipolar disorder, depression, hopeless, panic disorder, schizophrenia, sleepless, suicidal, others Physical Exam General Appearance: No Apparent Distress, Normal HEENT: Normal ENT Inspection, Pharynx Normal, TMs Normal Neck: Full Range of Motion, Non-Tender, Normal, Normal Inspection Respiratory: Chest Non-Tender, Lungs Clear, No Accessory Muscle Use, No Respiratory Distress, Normal Breath Sounds Cardiovascular: No Edema, No JVD, No Murmur, No Gallop, Normal Peripheral Pulses, Regular Rate/Rhythm Breast Exam: Deferred Gastrointestinal: No Organomegaly, Non Tender, No Pulsatile Mass, Normal Bowel Sounds, Soft Genitalia: Deferred Pelvic: Deferred Rectal: Deferred Extremities: No calf tenderness, Normal capillary refill, Normal inspection, Normal range of motion, Non-tender, No pedal edema Musculoskeletal : Apperance: Normal Neurologic: Alert, chicken and fish butcher II-XII nml as Tested, No Motor Deficits, Normal Affect, Normal Mood, No Sensory Deficits Cerebellar Function: Normal Reflexes: Normal Skin: Dry, Normal Color, Warm Lymphatic: No Adenopathy Was a procedure done? Was a procedure done?: No Differential Dx Considerations may include: Musculoskeletal pain, cellulitis, hip fracture X-Ray, Labs, Meds, VS Vital Signs Date Time Temp Pulse Resp B/P (MAP) Pulse Ox O2 Delivery O2 Flow Rate FiO2 01/09/25 03:27 98.4 82 18 187/91 (123) 95 98.4 01/09/25 01:51 98.0 91 18 182/88 (119) 98 98.0 01/09/25 00:37 89 17 100 Room Air 01/09/25 00:37 98.1 89 17 170/80 (110) 100 98.1 01/08/25 23:52 97.8 89 16 186/105 95 97.8 Current Medications Medications (Trade) Dose Ordered Sig/Sadia Route Start Time Stop Time Status Last Admin Acetaminophen/ Hydrocodone Bitart ([place] 5/325MG Tab) 2 tab ONCE ONCE PO 01/09/25 00:30 01/09/25 00:31 DC 01/09/25 01:13 Acetaminophen/ Hydrocodone Bitart ([place] 5/325MG Tab) 2 tab ONCE ONCE PO 01/09/25 04:30 01/09/25 04:31 DC 01/09/25 04:30 PROCEDURE(s): PL2CT - PELVIS WO CONTRAST REASON: pain , no known trauma ORDER NUMBER(s): [id number], ACCESSION NUMBER(s): [id number] History: pain , no known trauma Comparison Study: None Technique: Multidetector spiral CT of the pelvis was performed from iliac crests to pubic symphysis. 100 cc of intravenous contrast was administered during this examination. Portal venous imaging was obtained. Axial, coronal and sagittal multiplanar reformats were performed by the technologist on a separate wo rkstation. Radiation Dose : CT Dose: CTDI volume is 18.89 mGy. Dose-length product is 787.22 mGy*cm Findings: Visualized bowel: Small bowel and colon are normal in caliber and distribution. The appendix is not visualized; however, no secondary findings of acute appendicitis identified. Ascites: Absent Lymphadenopathy: No pelvic or mesenteric lymphadenopathy. Pelvis Wall and Mesentery: Unremarkable. Vasculature: The visualized abdominal aorta is normal in size and caliber. Abdominal and pelvic vessels demonstrate normal enhancement. Pelvic Organs: Unremarkable Musculoskeletal: No aggressive focal bony lesions, acute fractures or dislocation. Right dynamic hip screw with IM femoral nail and distal locking screw. No complication. Bladder: Unremarkable IMPRESSION: No acute pelvic finding. Time of 1ST Reevaluation: 00:19 Reevaluation 1ST: Unchanged Patient Education/Counseling: Diagnosis, Treatment Family Education/Counseling: Diagnosis, Treatment, No Family Present SEPSIS Sepsis Screen Date sepsis recognized/suspect: Jan 08, 2025 Time Sepsis recognized/suspect: 2354 Recent Procedure: No On Antibiotic Therapy: No Respiratory Rate >20: No Heart Rate >90: No Temp<36 C (96.8 F) or >38.3 C: No SBP <90 or MAP <65 mmHG: No New Acute Mental Status Change: No Is the patient on CPAP, BIPAP,: No Physician Orders Pelvis Wo Contrast (01/09/25 00:16) Vital Signs Date Time Temp Pulse Resp B/P (MAP) Pulse Ox O2 Delivery O2 Flow Rate FiO2 01/09/25 03:27 98.4 82 18 187/91 (123) 95 98.4 01/09/25 01:51 98.0 91 18 182/88 (119) 98 98.0 01/09/25 00:37 89 17 100 Room Air 01/09/25 00:37 98.1 89 17 170/80 (110) 100 98.1 01/08/25 23:52 97.8 89 16 186/105 95 97.8 Departure 1 Departure Time of Disposition: 02:00 Impression: Primary Impression: Right hip pain Disposition: HOME / SELF CARE / HOMELESS Condition: Stable e-Prescriptions Gabapentin (Once-Daily) (Gabapentin) 300 Mg Tab 300 MG PO Q6HP PRN, #60 TAB Prov: ZAYDA BROWN MD 01/09/25 Gabapentin (Once-Daily) (Gabapentin) 300 Mg Tab 300 MG PO Q6HP PRN, #60 TAB Prov: ZAYDA BROWN MD 01/09/25 Discharged With: Self Critical Care Note Critical Care Time?: No Stability Stability form required: No Heart Score Heart Score: Heart Score Response (Comments) Value History N/A 0 EKG N/A 0 Age N/A 0 Risk Factors N/A 0 Troponin N/A 0 Total 0 I personally scribed for ZAYDA BROWN MD ([email or web address]) on 01/09/25 at 00:24. Electronically submitted by Paxton Fernandes ([email or web address]). I personally scribed for ZAYDA BROWN MD ([email or web address]) on 01/09/25 at 01:36. Electronically submitted by Paxton Fernandes ([email or web address]). ZAYDA BROWN MD Jan 09, 2025 00:24
[2025-01-09] MEDS: HYDROcodone-ACET 5/325MG TAB PO ONE ×2 (01:13→04:30)
--- NOTE | 2025-01-09 01:30 | DVH ---
History: pain , no known trauma Comparison Study: None Technique: Multidetector spiral CT of the pelvis was performed from iliac crests to pubic symphysis. 100 cc of intravenous contrast was administered during this examination. Portal venous imaging was obtained. Axial, coronal and sagittal multiplanar reformats were performed by the technologist on a separate workstation. Radiation Dose : CT Dose: CTDI volume is 18.89 mGy. Dose-length product is 787.22 mGy*cm Findings: Visualized bowel: Small bowel and colon are normal in caliber and distribution. The appendix is not visualized; however, no secondary findings of acute appendicitis identified. Ascites: Absent Lymphadenopathy: No pelvic or mesenteric lymphadenopathy. Pelvis Wall and Mesentery: Unremarkable. Vasculature: The visualized abdominal aorta is normal in size and caliber. Abdominal and pelvic vessels demonstrate normal enhancement. Pelvic Organs: Unremarkable Musculoskeletal: No aggressive focal bony lesions, acute fractures or dislocation. Right dynamic hip screw with IM femoral nail and distal locking screw. No complication. Bladder: Unremarkable IMPRESSION: No acute pelvic finding.
[2025-01-09] MEDS ORDERED: GABA300T4 PO (03:12)
[2025-01-09 03:27] VITALS: BP 187/91; PULSE 82; RESP 18; TEMP 98.4; O2SAT 95
== END 2025-01-09 04:20 | disposition home or self-care (01) ==
LOC: ER 23:43
DX: M25.551 Pain in right hip (principal); I10 Essential (primary) hypertension; Z79.899 Other long term (current) drug therapy; Z86.73 Personal history of transient ischemic attack (TIA), and cerebral infarction without residual deficits; Z88.5 Allergy status to narcotic agent
CPT/HCPCS: 72192

== ENCOUNTER 2025-01-13 21:06 | Emergency (ER) | payer OTHER ==
[~2025-01-13] VITALS: Ht 157.5 cm; Wt 77.0 kg
[~2025-01-13 21:06] MED LIST changes: +GABA300T4 PO
--- NOTE | 2025-01-13 22:05 | ED.PDOC ---
History of Present Illness HPI Comments Patient is a 64-year-old female with past medical history of type 2 diabetes, hypertension, CVA with residual right-sided weakness, CAD s/p 1 time VIVIANE 1.5 years ago, fibromyalgia, osteoarthritis, comes in after sustaining a fall. According to the patient and granddaughter at bedside, earlier today while madison marquez was in the shower she fell backwards and hit the posterior and lateral aspect of her right skull against the shower head which is what prompted this visit to the hospital. Patient notes that she does not remember clearly, however, she may have felt dizzy before sustaining the fall. Patient notes she has a history of recurrent falls due to right-sided weakness. On review of systems patient is complaining of cough, shortness of breath and headache. Chief Complaint: Fall Injury Time Seen by MD: 21:19 Allergies: Coded Allergies: Codeine (Verified Allergy, Mild, bp drops, 04/18/24) Per patient Home Meds Active Scripts Gabapentin (Once-Daily) (Gabapentin) 300 Mg Tab, 300 MG PO Q6HP PRN, #60 TAB Prov:ZAYDA BROWN MD 01/09/25 Gabapentin (Once-Daily) (Gabapentin) 300 Mg Tab, 300 MG PO Q6HP PRN, #60 TAB Prov:ZAYDA BROWN MD 01/09/25 Ibuprofen Micronized (Ibuprofen) 800 Mg Tab, 800 MG PO Q8HP PRN for 10 Days, #30 TAB 0 Refills Prov:TERESO STRINGER [employer] 12/01/24 Metoprolol Tartrate (Metoprolol Tartrate) 50 Mg Tab, 50 MG PO BID, #180 TAB Prov:LIZBET OCONNELL MD 07/25/24 Azithromycin (Azithromycin) 500 Mg Tab, 1 TAB PO DAILY, #7 TAB Prov:LIZBET OCONNELL MD 07/25/24 Tramadol Hcl (Tramadol Hcl) 50 Mg Tab, 50 MG PO Q6HP PRN, #20 TAB prn breakthrough pain Prov:DENISE HANNA MD 04/18/24 Ibuprofen Micronized (Ibuprofen) 800 Mg Tab, 800 MG PO Q8HP PRN, #30 TAB prn pain, take with food Prov:DENISE HANNA MD 04/18/24 Information Source: Patient, Relative Mode of Arrival: Ambulatory Severity: Moderate Timing: Hours Duration: Intermittent Past Medical History PAST MEDICAL HISTORY: CVA, HTN, SC Past Medical History (Contd): type 2 diabetes, hypertension, CVA with residual right-sided weakness, CAD s/p 1 time VIVIANE 1.5 years ago, fibromyalgia, osteoarthritis Surgical History (Cont'd) Right hip surgery, PCI [employer] History: Denies all [employer] Hx Family History Family History: Unknown Social History Smoker: Non-Smoker Alcohol: Denies ETOH Use Drugs: Denies Drug Use Lives In: Home Constitutional: denies: chills, diaphoresis, fatigue, fever, malaise, sweats, weakness, others EENTM: denies: blurred vision, double vision, ear bleeding, ear discharge, ear drainage, ear pain, ear ringing, eye pain, eye redness, hearing loss, mouth pain, mouth swelling, nasal discharge, nose bleeding, nose congestion, nose pain, photophobia, tearing, throat pain, throat swelling, voice changes, others Respiratory: reports: cough, SOB at rest, shortness of breath, SOB with excertion; denies: hemoptysis, orthopnea, stridor, wheezing, others Cardiovascular: reports: syncope; denies: chest pain, dizzy spells, diaphoresis, Dyspnea on exertion, edema, irregular heart beat, left arm pain, lightheadedness, palpitations, PND, others Gastrointestinal: denies: abdomen distended, abdominal pain, blood streaked bowels, constipated, diarrhea, dysphagia, difficulty swallowing, hematemesis, melena, nausea, poor appetite, poor fluid intake, rectal bleeding, rectal pain, vomiting, others Genitourinary: denies: abnormal vagina bleeding, burning, dyspareunia, dysuria, flank pain, frequency, hematuria, incontinence, pain, , vagina discharge, urgency, others Neurological: reports: pre-existing deficit, right sided weakness; denies: dizziness, fainting, headache, left sided numbness, left sided weakness, numbness, paresthesia, right sided numbness, seizure, speech problems, tingling, tremors, weakness, others Musculoskeletal: reports: joint pain; denies: back pain, gout, joint swelling, muscle pain, muscle stiffness, neck pain, others Integumetry: denies: bruises, change in color, change in hair/nails, dryness, laceration, lesions, lumps, rash, wounds, others Allergic/Immunocompromised: denies: Difficulty Healing, Frequent Infections, Hives, Itching, others Hematologic/Lymphatic: denies: anemia, blood clots, easy bleeding, easy bruising, swollen glands, others Endocrine: denies: excessive hunger, excessive sweating, excessive thirst, excessive urination, flushing, intolerance to cold, intolerance to heat, unexplained weight gain, unexplained weight loss, others Psychiatric: denies: anxiety, bipolar disorder, depression, hopeless, panic disorder, schizophrenia, sleepless, suicidal, others Physical Exam General Appearance: Mild Distress HEENT: Normal ENT Inspection Neck: Full Range of Motion, Non-Tender, Normal, Normal Inspection Respiratory: Chest Non-Tender, Decreased Breath Sounds (Over right lung base), No Accessory Muscle Use, No Respiratory Distress Cardiovascular: No JVD, No Murmur, Regular Rate/Rhythm Breast Exam: Deferred Gastrointestinal: No Organomegaly, Non Tender, Normal Bowel Sounds Genitalia: Deferred Pelvic: Deferred Rectal: Rectal Exam not done Extremities: Leg edema (1+ pitting lower extremity edema), No calf tenderness Neurologic: Alert, Motor Weakness (Noted in right upper and lower extremity), Normal Affect, No Sensory Deficits Cerebellar Function: Normal Reflexes: NOT DONE Skin: Dry, Normal Color Peripheral Pulses: 2+ dorsalis pedis (R), 2+ dorsalis pedis (L) Lymphatic: NOT DONE Was a procedure done? Was a procedure done?: No Differential Dx Considerations may include: Syncope Recurrent falls Autonomic dysfunction Head trauma X-Ray, Labs, Meds, VS Vital Signs Date Time Temp Pulse Resp B/P (MAP) Pulse Ox O2 Delivery O2 Flow Rate FiO2 01/14/25 03:06 98.5 72 17 149/71 (97) 97 98.5 01/14/25 00:11 97.5 69 16 165/75 (105) 95 97.5 01/13/25 21:25 97.1 73 20 173/63 96 97.1 Lab Test 01/14/25 02:38 01/14/25 01:42 01/14/25 00:07 01/13/25 22:59 Range/Units POC Glucose 372 H 430 *H 449 *H 70-106 mg/dl Troponin I High Sensitivity < 3 L </=34 ng/L Test 01/13/25 22:09 Range/Units White Blood Count 10.6 4.4-10.8 10^3/uL Red Blood Count 5.24 H 4.0-5.20 10^6/uL Hemoglobin 14.4 12.2-16.2 g/dL Hematocrit 43.6 36.0-46.0 % Mean Corpuscular Volume 83.2 80.0-100.0 fL Mean Corpuscular Hemoglobin 27.4 L 28.0-32.0 pg Mean Corpuscular Hemoglobin Concent 33.0 32.0-36.0 g/dL Red Cell Distribution Width 13.8 11.8-14.3 % Platelet Count 322 140-450 10^3/uL Mean Platelet Volume 8.6 6.9-10.8 fL Neutrophils (%) (Auto) 58.2 37.0-80.0 % Lymphocytes (%) (Auto) 33.6 10.0-50.0 % Monocytes (%) (Auto) 5.3 0.0-12.0 % Eosinophils (%) (Auto) 2.3 0.0-7.0 % Basophils (%) (Auto) 0.6 0.0-2.0 % Neutrophils # (Auto) 6.1 1.6-8.6 10 ^3/uL Lymphocytes # (Auto) 3.5 0.4-5.4 10 ^3/uL Monocytes # (Auto) 0.6 0-1.3 10 ^3/uL Eosinophils # (Auto) 0.2 0-0.8 10 ^3/uL Basophils # (Auto) 0.1 0-0.2 10 ^3/uL Nucleated Red Blood Cells 0.1 % Sodium Level 140 136-145 mmol/L Potassium Level 4.7 3.5-5.1 mmol/L Chloride Level 100 98-107 mmol/L Carbon Dioxide Level 31 20-31 mmol/L Anion Gap 9 5-15 Blood Urea Nitrogen 22 9-23 mg/dL Creatinine 1.14 H 0.550-1.02 mg/dL Glomerular Filtration Rate Calc 54 >90 mL/min BUN/Creatinine Ratio 19.3 10.0-20.0 Serum Glucose 458 *H 74-106 mg/dL Calcium Level 10.4 8.7-10.4 mg/dL Troponin I High Sensitivity < 3 L </=34 ng/L B-Type Natriuretic Peptide 13.94 0-100 pg/mL Current Medications Medications (Trade) Dose Ordered Sig/Sadia Route Start Time Stop Time Status Last Admin Diagnostic Test (Pha) (Accu-Chek Comfort Curve T) 1 strip IQ4HR 01/14/25 00:00 01/14/25 04:13 Insulin Human Regular (InsuLIN R) IQ4HR SC 01/14/25 00:00 01/14/25 00:12 Sodium Chloride 1,000 ml @ 1,000 mls/hr Q1H ONCE IV 01/14/25 00:30 01/14/25 01:29 DC 01/14/25 00:59 Insulin Human Regular (InsuLIN R) 8 units ONCE ONCE IV 01/14/25 03:00 01/14/25 03:01 DC 01/14/25 03:06 Time of 1ST Reevaluation: 22:10 Reevaluation 1ST: Worsened Time of 2ND Reevaluation: 23:10 Reevaluation 2ND: Improved Patient Education/Counseling: Diagnosis, Treatment, Prognosis, Need For Follow Up Family Education/Counseling: Diagnosis, Treatment, Prognosis, Need For Follow Up SEPSIS Sepsis Screen Date sepsis recognized/suspect: Jan 13, 2025 Time Sepsis recognized/suspect: 2124 Recent Procedure: No On Antibiotic Therapy: No Respiratory Rate >20: No Heart Rate >90: No Temp<36 C (96.8 F) or >38.3 C: No SBP <90 or MAP <65 mmHG: No New Acute Mental Status Change: No Is the patient on CPAP, BIPAP,: No Physician Orders Head Without Contrast (01/13/25 21:57) Electrocardigram (01/13/25 21:57) Chest Portable (01/13/25 21:57) Cervical Without Contrast (01/13/25 22:12) Carotid Duplx W Color Dop (01/13/25 23:04) Glucose Blood (Accu-Chek Comfort Curve T (01/14/25 00:00) Insulin R (Human) (Insulin R) (01/14/25 00:00) Dextrose 50% Syringe (01/13/25 23:45) Insulin Lantus (Glargine) (Lantus) (01/14/25 04:30) Vital Signs Date Time Temp Pulse Resp B/P (MAP) Pulse Ox O2 Delivery O2 Flow Rate FiO2 01/14/25 03:06 98.5 72 17 149/71 (97) 97 98.5 01/14/25 00:11 97.5 69 16 165/75 (105) 95 97.5 01/13/25 21:25 97.1 73 20 173/63 96 97.1 Laboratory Tests Test 01/13/25 22:09 White Blood Count 10.6 10^3/uL (4.4-10.8) Medications Medications Dose Ordered Sig/Sadia Route Start Time Stop Time Status Last Admin Dose Admin Diagnostic Test (Pha) 1 strip IQ4HR 01/14/25 00:00 01/14/25 04:13 Insulin Human Regular IQ4HR SC 01/14/25 00:00 01/14/25 00:12 Insulin Human Regular 8 units ONCE ONCE IV 01/14/25 03:00 01/14/25 03:01 DC 01/14/25 03:06 Sodium Chloride 1,000 ml @ 1,000 mls/hr Q1H ONCE IV 01/14/25 00:30 01/14/25 01:29 DC 01/14/25 00:59 Departure 1 Departure Time of Disposition: 04:15 (Patient is a 64-year-old female with past medical history of type 2 diabetes, hypertension, CVA with residual right-sided weakness, CAD s/p 1 time VIVIANE 1.5 years ago, fibromyalgia, osteoarthritis, comes in after sustaining a fall. Patient reports recurrent near syncopal events over the past few months. Given possible syncopal event today a cardiac workup was performed. EKG with no evidence of arrhythmia or signs of acute ischemia. Serial troponins were obtained which came back negative. Chest x-ray was performed which shows no evidence of acute cardiopulmonary process. Because the patient fell back and hit her head and given her age and symptoms the CT of the head and cervical spine were performed which are both negative for any acute intracranial process or underlying fractures. CBC with no evidence of critical leukocytosis or significant anemia. Metabolic panel notable for critical hyperglycemia in the 400s, however, no signs to suggest DKA. Patient does admit that she did not take her nighttime dose of her medications today due to coming to the hospital. The patient was given subcu is fluid followed by 1 L bolus here with IV fluid bolus, IV insulin with improvement of glucose down to the 200s. She was then given her long-acting insulin which she missed tonight. Extensive counseling performed with the patient reguarding her long-term management of her diabetes. Pseudo the patient admission for further workup of today's presentation. However, glucose is significantly improved. Patient's recurrent near syncopal events have been ongoing for months. Shared decision- making was performed with the patient. Patient would prefer to be discharged. She is stable for discharge for further outpatient workup and management by primary care doctor.) Impression: Primary Impression: Blunt head trauma Additional Impressions: Fall in bathtub Diabetes mellitus with hyperglycemia Disposition: HOME / SELF CARE / HOMELESS Condition: Stable Comments Patient noted to have stable vital signs, blood glucose 229, imaging including head CT and cervical spine CT largely unremarkable. Patient was discharged home with instructions to follow up with PCP for optimization of insulin regimen, also instructed patient to check blood glucose levels at least 3 times a day, patient demonstrated understanding. Notes having adequate refills of insulin as well as glucometer, lancets and strips available at home. Instructed patient to come back to the ER if symptoms persist or worsen, patient demonstrated understanding. Critical Care Note Critical Care Time?: No Stability Stability form required: SHAUNA Morales RESIDENT Jan 13, 2025 22:05 FANNY MERRITT MD Jan 14, 2025 04:31
[2025-01-13 22:30] LABS: Chloride 100 mmol/L (98-107); Potassium 4.7 mmol/L (3.5-5.1); Sodium 140 mmol/L (136-145)
[2025-01-13 22:31] LABS: Anion Gap 9 (5-15); Calcium 10.4 mg/dL (8.7-10.4); Carbon Dioxide 31 mmol/L (20-31)
[2025-01-13 22:36] LABS: BUN/Creatinine Ratio 19.3 (10.0-20.0); Blood Urea Nitrogen 22 mg/dL (9-23)
--- NOTE | 2025-01-13 22:43 | DVH ---
CLINICAL HISTORY: sob TECHNIQUE: Single view of the chest was obtained. COMPARISON: XY CHEST PORTABLE on DOS: 07/22/24, XY R RIB XRAY on DOS: 04/18/24 FINDINGS: The heart size and pulmonary vasculature are normal. The lungs are clear. IMPRESSION: NO ACUTE CARDIOPULMONARY PROCESS.
[2025-01-13 22:46] LABS: Hematocrit 43.6 % (36.0-46.0); Hemoglobin 14.4 g/dL (12.2-16.2); Mean Corpuscular Hemoglobin 27.4 pg (28.0-32.0); Mean Corpuscular Volume 83.2 fL (80.0-100.0); Nucleated Red Blood Cells % 0.1 %
--- NOTE | 2025-01-13 22:46 | DVH ---
CT HEAD WITHOUT CONTRAST INDICATION: s/p fall EXAM DATE: 01/13/2025 10:02 PM COMPARISON: CT HEAD WITHOUT CONTRAST on DOS: 07/22/24 RADIATION DOSE: CTDIvol: 51.34 mGy, DLP: 909.29 mGy*cm PROCEDURE: CT scans of the head were obtained from the vertex to the skull base. Sagittal and coronal reconstructions were provided. All CT scans at this medical facility are performed using dose modulation techniques as appropriate to a performed exam including the following: Automated exposure control was utilized; adjustment of the MA and/or KV according to patient size; and use of iterative reconstruction technique. FINDINGS: Evaluation is degraded by motion artifact. No acute territorial infarct, intracranial hemorrhage, or mass effect. There are global involutional changes with compensatory prominence of the ventricles and sulci. Patchy periventricular and subcortical white matter hypoattenuation is nonspecific but may be related to small vessel ischemic disease. Chronic deep cerebral lacunar infarcts. The orbits are normal. The paranasal sinuses and mastoid air cells are clear. The osseous structures are unremarkable. IMPRESSION: 1. No acute territorial infarct, intracranial hemorrhage, or mass effect. 2. Age-related involutional changes. Chronic ischemic changes as detailed. 3. If clinical symptoms persist, MRI may be beneficial in further evaluation.
[2025-01-13 23:10] LABS: Glucose 458 mg/dL (74-106)
--- NOTE | 2025-01-13 23:11 | DVH ---
CLINICAL HISTORY: s/p fall TECHNIQUE: CT exam of the cervical spine was performed without intravenous contrast. This exam was performed according to our departmental dose optimization program. Up-to-date CT equipment and radiation dose reduction techniques are utilized as appropriate. CTDI 20.4 mGy DLP 15.6 mGy.cm COMPARISON: None FINDINGS: There is no acute displaced fracture. There are degenerative changes of the cervical spine characterized by endplate osteophytosis and intervertebral disc space narrowing. Disc osteophyte complexes at C5-6 and C6-7 efface the thecal sac. There is straightening of the cervical lordosis. There is nonunion of the posterior arch of C1. Degenerative uncovertebral and facet hypertrophy contribute to mild multilevel neural foraminal narrowing. The paraspinal soft tissues are unremarkable. IMPRESSION: 1. No acute displaced fracture. 2. Degenerative changes of the cervical spine as detailed. If clinically indicated, MRI may be beneficial in further assessment.
[2025-01-13] MEDS ORDERED: DEXTROSE (50%) 50ML SYRG IV PRN (23:45)
[2025-01-14] MEDS: ACCU-CHEK COMFORT CURVE STRIP VI SCH (00:08)
[2025-01-14] MEDS: InsuLIN REG 1unit/0.01ml Soln (100units/ml) SC SCH (00:12)
[2025-01-14] MEDS: SODIUM CHLORIDE 0.9% 1,000 ML IV ONE (00:59)
[2025-01-14 03:06] VITALS: BP 149/71; PULSE 72; RESP 17; TEMP 98.5; O2SAT 97
[2025-01-14] MEDS: InsuLIN REG 1unit/0.01ml Soln (100units/ml) IV ONE (03:06)
[2025-01-14] MEDS: SODIUM CHLORIDE 0.9% 250 ML IV ONE (03:15)
[2025-01-14] MEDS: INSULIN LANTUS (GLARGINE) 1 /0.01ml (100units/ml) SC ONE (05:02)
== END 2025-01-14 05:17 | disposition home or self-care (01) ==
LOC: ER 21:06
DX: S09.8XXA Other specified injuries of head, initial encounter (principal); E11.65 Type 2 diabetes mellitus with hyperglycemia; I10 Essential (primary) hypertension; I25.10 Atherosclerotic heart disease of native coronary artery without angina pectoris; Z79.899 Other long term (current) drug therapy; Z88.5 Allergy status to narcotic agent; W18.2XXA Fall in (into) shower or empty bathtub, initial encounter; Y93.E1 Activity, personal bathing and showering; Y92.89 Other specified places as the place of occurrence of the external cause; Y99.8 Other external cause status
CPT/HCPCS: 36415; 70450; 71045; 72125; 80048; 82947; 83880; 84484; 85025; 96361; 96372; 96374; 99285; J1815; J7030; 82962